=== PATIENT | male | born 1995 | race American Indian/Alaskan Native ===

== ENCOUNTER 2016-12-09 15:56 | Emergency (ER) | payer OTHER, MEDICAID ==
[2016-12-09 16:33] VITALS: BP 131/71
[2016-12-09] MEDS ORDERED: Meclizine 12.5 MG Tab PO ONE (18:22)
[2016-12-09] MEDS ORDERED: Gentamicin 0.3% Ophth Soln 5 ML Bottle EYEBOTH ONE (18:22)
[2016-12-09] MEDS ORDERED: Dexamethasone 4 MG Tab PO ONE (18:23)
--- NOTE | 2016-12-09 19:01 | EDM.PDOC ---
Scribed by Kaye Espino 12/09/16 [id number] for Oren Chavez MD ED HPI GENERAL MEDICAL PROBLEM - General Chief Complaint: ENT Problem Stated Complaint: EYES ARE HURTING, [id number] Time Seen by Provider: 12/09/16 17:46 Source of Information: Reports: Patient, RN, RN Notes Reviewed History Limitations: Reports: No Limitations - History of Present Illness INITIAL COMMENTS - FREE TEXT/NARRATIVE: Complained that woke today with frontal headache, and pressure behind eyes and in bilateral ears. When he first sat up this morning he had sudden onset of "room spin dizziness" with nausea and vomiting that lasted less than 5 minutes. Onset: Today Duration: Improving Location: Reports: Head, Face Quality: Reports: Ache Severity: Moderate Improves with: Reports: None Worsens with: Reports: None Associated Symptoms: Reports: No Other Symptoms - Related Data Allergies Allergy/AdvReac Type Severity Reaction Status Date / Time codeine Allergy Cannot Verified 06/04/16 15:53 Remember Home Meds: Home Meds . [No Known Home Meds] 06/04/16 [History] Past Medical History - Past Health History Medical/Surgical History: Denies Medical/Surgical History - Infectious Disease History Infectious Disease History: Reports: None Social & Family History - Family History Family Medical History: Noncontributory - Tobacco Use Smoking Status *Q: Never Smoker Second Hand Smoke Exposure: No - Caffeine Use Caffeine Use: Reports: Coffee, Soda, Tea - Recreational Drug Use Recreational Drug Use: No ED ROS ENT - Review of Systems Review Of Systems: ROS reveals no pertinent complaints other than HPI. ED EXAM, ENT - Physical Exam Exam: See Below Exam Limited By: No Limitations General Appearance: Alert, WD/WN, No Apparent Distress, Obese Eye Exam: Bilateral Eye: Conjunctival Injection (with green matting at bilateral eyes. ) Ears: Normal External Exam, Normal Canal, Hearing Grossly Normal, Normal TMs Nose: Normal Inspection, Normal Mucousa, No Blood Mouth/Throat: Normal Inspection, Normal Gums, Normal Lips, Normal Oropharynx, Normal Teeth Head: Atraumatic Neck: Normal Inspection, Supple, Non-Tender, Full Range of Motion Respiratory/Chest: No Respiratory Distress, Lungs Clear, Normal Breath Sounds, No Accessory Muscle Use, Chest Non-Tender Cardiovascular: Normal Peripheral Pulses, Regular Rate, Rhythm, No Edema, No Gallop, No JVD, No Murmur, No Rub GI/Abdominal: Normal Bowel Sounds, Soft, Non-Tender, No Organomegaly, No Distention, No Abnormal Bruit, No Mass Back: Normal Inspection, Full Range of Motion Extremities: Normal Inspection, Normal Range of Motion, Non-Tender, No Pedal Edema, Normal Capillary Refill Neurological: Alert, Oriented, CN II-XII Intact, Normal Cognition, Normal Gait, Normal Reflexes, No Motor/Sensory Deficits Psychiatric: Normal Affect, Normal Mood Skin: Warm, Dry, Intact, Normal Color, No Rash Lymphatic: No Adenopathy Course - Vital Signs Last Recorded V/S: Last Vital Signs Temp 36.8 C 12/09/16 16:32 Pulse 80 12/09/16 16:32 Resp 16 12/09/16 16:32 BP 131/71 12/09/16 16:32 Pulse Ox 99 12/09/16 16:32 - Orders/Labs/Meds Meds: Medications Discontinued Medications Generic Name Dose Route Start Last Admin Trade Name Jace PRN Reason Stop Dose Admin Dexamethasone 8 mg 12/09/16 18:23 12/09/16 18:38 Dexamethasone PO 12/09/16 18:24 8 mg ONETIME ONE Administration Gentamicin Sulfate 2 ml 12/09/16 18:22 12/09/16 18:37 Garamycin 0.3% Ophth Soln EYEBOTH 12/09/16 18:23 2 ml ONETIME ONE Administration Meclizine HCl 25 mg 12/09/16 18:22 12/09/16 18:37 Antivert PO 12/09/16 18:23 25 mg ONETIME ONE Administration Departure - Departure Time of Disposition: 18:23 Disposition: Home, Self-Care 01 Condition: Good Clinical Impression: Bacterial conjunctivitis of both eyes, Sinus headache Labyrinthitis Qualifiers: Laterality: bilateral Qualified Code(s): H83.03 - Labyrinthitis, bilateral Allergic rhinosinusitis Qualifiers: Chronicity: acute Allergic rhinitis trigger: unspecified Allergic rhinitis seasonality: seasonal Qualified Code(s): J30.2 - Other seasonal allergic rhinitis - Discharge Information Instructions: Labyrinthitis, [id number], Bacterial Conjunctivitis, Easy-to- Read, Nasal Allergies, [id number], Sinus Headache, [id number] Forms: ED Department Discharge Additional Instructions: RX: Meclizine 25mg. RX: Decadron 4mg. RX: Claritin-D 24 hour. Gentamicin 0.3% soln. Follow up in clinic in 3 days for recheck. I have read and agree with the documentation that has been completed regarding this visit. By signing this record, I attest that the documentation was completed in my physical presence and is an accurate record of the encounter.
== END 2016-12-09 18:40 | disposition home or self-care (01) ==
LOC: DL.ED 15:56
DX: H83.03 Labyrinthitis, bilateral (principal); H10.9 Unspecified conjunctivitis; J30.2 Other seasonal allergic rhinitis; Z88.5 Allergy status to narcotic agent
CPT/HCPCS: 99282; A9270; J8540

== ENCOUNTER 2018-08-21 17:23 | Emergency (ER) | payer MEDICAID, OTHER ==
[2018-08-21] MEDS ORDERED: methylPREDNISolone 4 MG Tab 21 Tab/Dosepak PO ONE (17:24)
[2018-08-21] MEDS ORDERED: Albuterol 6.7 GM Inhaler INH ONE ×2 (17:24→18:14)
[2018-08-21 17:37] VITALS: BP 144/78
[2018-08-21] MEDS ORDERED: Ketorolac 30 MG/ML SDV IM ONE (17:47)
[2018-08-21] MEDS ORDERED: methylPREDNISolone 4 MG Tab 21 Tab/Dosepak ONE (18:14)
--- NOTE | 2018-08-21 20:44 | ER ---
SUBJECTIVE: The patient is a 23-year-old morbidly obese male, who comes in because he has some shortness of breath at times but mostly coughing. He states he gets it spells, if he gets around something that bothers his lungs he coughs. He states yesterday he did not cough all day and was fine today. He feels he must have gotten around something and he coughed again. He states he was coughing hard and he felt a pop of his ribs, he is afraid may be fractured a rib. He does not have any focal or specific tenderness but does have some discomfort of his ribs, mostly on the left and posteriorly. No other trauma. No fevers, no chills. No nausea or vomiting. No bowel or bladder changes. No bleeding. He denies having a diagnosis of asthma. PAST MEDICAL HISTORY: Denied. CURRENT MEDICATIONS: Denied. ALLERGIES: Include codeine but he cannot remember why. SOCIAL HISTORY: He denies tobacco or any other substance abuse. REVIEW OF SYSTEMS: No fevers, no chills. He does have some rib and chest wall discomfort if he coughs too hard. No abdominal pain. No bowel or bladder changes, bleeding, please see HPI. PHYSICAL EXAMINATION: Vital Signs: His weight is 142 kg. He is afebrile. Heart rate is 92, blood pressure is 144/78, respiratory rate 16, oxygen is 98% on room air. General: Pleasant, ambulatory, talkative, appears in no respiratory distress. No coughing. Speaks in full sentences. HEENT: Mucous membranes moist. HEENT exam unremarkable. Conjunctivae are unremarkable. Neck: Unremarkable. Chest: Clear. No rhonchi, wheezing, or rales. Moving air well. Cardiovascular: RRR. Back: Unremarkable. He has some subjective rib and chest discomfort if he coughs, it is not reproducible on exam; however, exam is somewhat difficult in light of the patient's size. A chest x-ray is performed, it is unremarkable. The patient's heart was monitored on tele and his vitals and he remained very stable. EMERGENCY ROOM COURSE: He was given injection of Toradol. ASSESSMENT: 1. Bronchospasm versus reactive airway disease. 2. Chest wall discomfort with heavy coughing spells periodically. PLAN: Prescription for ProAir HFA 2 puffs q.i.d. p.r.n. #1, a prescription of Medrol Dosepak as directed. Recommend follow up with PCP this next week or return for any emergent issues. Recommend stay away from any tobacco use or other exposure that bother his lungs. MODL /[id number]
== END 2018-08-21 18:27 | disposition home or self-care (01) ==
LOC: DL.ED 17:23
DX: R07.89 Other chest pain (principal)
CPT/HCPCS: 71046; 96372; 99284; A9270; J1885

== ENCOUNTER 2018-09-03 17:22 | Emergency (ER) | payer SELFPAY ==
[2018-09-03 17:53] VITALS: BP 146/76
[2018-09-03] MEDS ORDERED: GI Cocktail Oral Solution 30 ML PO ONE (18:11)
[2018-09-03] MEDS ORDERED: Omeprazole 20 MG Cap.CR PO ONE (18:57)
--- NOTE | 2018-09-03 18:58 | EDM.PDOC ---
ED HPI GENERAL MEDICAL PROBLEM - General Chief Complaint: Respiratory Problem Stated Complaint: HAVING A BREATHING PROBLEM Time Seen by Provider: 09/03/18 18:00 Source of Information: Reports: Patient History Limitations: Reports: No Limitations - History of Present Illness INITIAL COMMENTS - FREE TEXT/NARRATIVE: patient comes emergency department today with complaints of cough. He was seen in the emergency department couple weeks ago and diagnosed with bronchitis and had steroids as well as an inhaler. His wheezing and shortness of breath has improved. This morning about 3:00 he woke up with a severe coughing fit. His coughing fit resolved following the use of the inhaler that he had received earlier.Most of his coughing fit and shortness of breath that he has an wheezing develops during the night. He has a burning sensation in the back of his throat as well as a metallic taste. He is unsure if he has any heartburn type symptoms. He has no fever or chills. His cough is dry hacking in nature and nonproductive. He has no pain in his chest. No weakness dizziness lightheadedness. No palpitations. Treatments [employer]: Reports: NSAIDS, Other (see below) Other Treatments [employer]: albuterol inhaler. - Related Data Allergies Allergy/AdvReac Type Severity Reaction Status Date / Time codeine Allergy Cannot Verified 09/03/18 18:03 Remember Home Meds: Home Meds Albuterol [Proventil HFA] 6.7 gm IH Q4H 09/03/18 [History] Past Medical History - Past Health History Medical/Surgical History: Denies Medical/Surgical History - Infectious Disease History Infectious Disease History: Reports: None Social & Family History - Family History Family Medical History: Noncontributory - Tobacco Use Smoking Status *Q: Never Smoker Second Hand Smoke Exposure: No - Caffeine Use Caffeine Use: Reports: Coffee, Soda - Recreational Drug Use Recreational Drug Use: No ED ROS GENERAL - Review of Systems Review Of Systems: ROS reveals no pertinent complaints other than HPI. ED EXAM, GENERAL - Physical Exam Exam: See Below Exam Limited By: No Limitations General Appearance: Alert, WD/WN, No Apparent Distress Nose: Normal Inspection, Normal Mucosa Throat/Mouth: Normal Inspection, Normal Oropharynx Head: Atraumatic, Normocephalic Neck: Normal Inspection, Supple Respiratory/Chest: No Respiratory Distress, Lungs Clear, Normal Breath Sounds, No Accessory Muscle Use, Chest Non-Tender Cardiovascular: Normal Peripheral Pulses, Regular Rate, Rhythm, No JVD, No Murmur, No Rub GI/Abdominal: Normal Bowel Sounds, Soft Extremities: Normal Inspection, Normal Range of Motion, No Pedal Edema, Normal Capillary Refill Neurological: Alert, Oriented, Normal Cognition, No Motor/Sensory Deficits Psychiatric: Normal Affect, Normal Mood Skin Exam: Warm, Dry, Intact, Normal Color, No Rash Course - Vital Signs Last Recorded V/S: Last Vital Signs Temp 36.4 C 09/03/18 17:41 Pulse 97 09/03/18 17:41 Resp 16 09/03/18 17:41 BP 146/76 H 09/03/18 17:41 Pulse Ox 98 09/03/18 17:41 - Orders/Labs/Meds Meds: Medications Discontinued Medications Generic Name Dose Route Start Last Admin Trade Name Jace PRN Reason Stop Dose Admin Al Hydroxide/Mg Hydroxide 30 ml 09/03/18 18:11 09/03/18 18:15 Gi Cocktail PO 09/03/18 18:12 30 ml ONETIME ONE Administration Omeprazole 20 mg 09/03/18 18:57 09/03/18 19:03 Omeprazole PO 09/03/18 18:58 20 mg ONETIME ONE Administration - Re-Assessments/Exams Free Text/Narrative Re-Assessment/Exam: 09/03/18 the patient is clearly in no respiratory distress. He has no wheezing on forced exhalation. I wonder if an aspect of his cough that he only has a night with the burning sensation in his throat as well as a metallic taste was not somewhat related to heartburn or GERD.a GI cocktail was given to the patient and he felt much better and the sensation in his throat and the tickle that he had previously that made him cough is resolved. I will send him home with some omeprazole as well as Maalox Mylanta as needed for acute episodes of heartburn type sensation. He can continue with the albuterol as needed. If he has continued problems consider testing with spirometry for asthma. Patient is comfort with this plan and his questions are answered. Departure - Departure Time of Disposition: 18:55 Disposition: Home, Self-Care 01 Clinical Impression: Cough GERD (gastroesophageal reflux disease) Qualifiers: Esophagitis presence: esophagitis presence not specified Qualified Code(s): K21.9 - Gastro-esophageal reflux disease without esophagitis - Discharge Information Instructions: Cough, Adult, [id number], Gastroesophageal Reflux Disease, Adult Referrals: PCP,None [Primary Care Provider] - Forms: ED Department Discharge Additional Instructions: Continue using the inhaler as needed for the cough. Start Omeprazole 1 tablet daily for the next 28 days. RX given to the patient. For acute episodes of heartburn try Maalox or Mylanta OTC for acute management. If cough continues see PCP for recheck and consider spirometry for diagnosis of asthma. Return to the ED if new or worsening symptoms Follow up with PCP in the next 4-6 days if not improving sooner if worse. - Assessment/Plan Assessment:: Cough, ? if GERD vs asthma most likely GERD. GERD Plan: Continue using the inhaler as needed for the cough. Start Omeprazole 1 tablet daily for the next 28 days. RX given to the patient. For acute episodes of heartburn try Maalox or Mylanta OTC for acute management. If cough continues see PCP for recheck and consider spirometry for diagnosis of asthma. Return to the ED if new or worsening symptoms Follow up with PCP in the next 4-6 days if not improving sooner if worse.
== END 2018-09-03 19:07 | disposition home or self-care (01) ==
LOC: DL.ED 17:22
DX: K21.9 Gastro-esophageal reflux disease without esophagitis (principal); R05 Cough; Z88.5 Allergy status to narcotic agent
CPT/HCPCS: 99282; A9270

== ENCOUNTER 2020-09-05 19:42 | Emergency (ER) | payer OTHER, SELFPAY ==
[2020-09-05 20:07] VITALS: BP 126/77; PULSE 107
[2020-09-05 20:58] LABS: CORONAVIRUS COVID-19 NAA POSITIVE (NEGATIVE)
--- NOTE | 2020-09-05 21:22 | EDM.PDOC ---
ED HPI GENERAL MEDICAL PROBLEM - General Chief Complaint: Fever Stated Complaint: HIGH TEMP, COUGHING,SHALLOW BREATHING Time Seen by Provider: 09/05/20 20:30 Source of Information: Reports: Patient History Limitations: Reports: No Limitations - History of Present Illness INITIAL COMMENTS - FREE TEXT/NARRATIVE: Cough since Thursday, fever some congestion. No nausea or vomiting. no change in taste or smell. No known exposure to COVID. Sternum Pain Score (Numeric/FACES): 8 - Related Data Allergies Allergy/AdvReac Type Severity Reaction Status Date / Time codeine Allergy Cannot Verified 09/05/20 20:02 Remember citric acid Allergy Cannot Uncoded 09/05/20 20:02 Remember Home Meds: Home Meds Albuterol [Proventil HFA] 6.7 gm IH Q4H 09/03/18 [History] Past Medical History - Past Health History Medical/Surgical History: Denies Medical/Surgical History - Infectious Disease History Infectious Disease History: Reports: None Social & Family History - Family History Family Medical History: No Pertinent Family History - Tobacco Use Tobacco Use Status *Q: Never Tobacco User Second Hand Smoke Exposure: No - Caffeine Use Caffeine Use: Reports: Soda - Recreational Drug Use Recreational Drug Use: No ED ROS GENERAL - Review of Systems Review Of Systems: Comprehensive ROS is negative, except as noted in HPI. ED EXAM, GENERAL - Physical Exam Exam: See Below Exam Limited By: No Limitations General Appearance: Alert, No Apparent Distress Eye Exam: Bilateral Eye: EOMI Ears: Normal External Exam, Hearing Grossly Normal Nose: Normal Inspection Throat/Mouth: Normal Inspection Head: Atraumatic, Normocephalic Neck: Normal Inspection Respiratory/Chest: No Respiratory Distress, Lungs Clear, Normal Breath Sounds Cardiovascular: Normal Peripheral Pulses, Regular Rate, Rhythm GI/Abdominal: Normal Bowel Sounds, Soft Extremities: Normal Inspection, Normal Range of Motion Neurological: Alert, Oriented, Normal Cognition Psychiatric: Normal Affect, Normal Mood Skin Exam: Warm, Dry, Intact, Normal Color Course - Vital Signs Last Recorded V/S: Last Vital Signs Temp 100.5 F 09/05/20 19:50 Pulse 107 H 09/05/20 19:50 Resp 18 09/05/20 19:50 BP 126/77 09/05/20 19:50 Pulse Ox 96 09/05/20 19:50 - Orders/Labs/Meds Labs: Laboratory Tests 09/05/20 Range/Units 20:00 Influenza Type A RNA Negative (NEGATIVE) Influenza Type B RNA Negative (NEGATIVE) SARS-CoV-2 RNA (ARA) Positive H (NEGATIVE) Departure - Departure Time of Disposition: 21:20 Disposition: Home, Self-Care 01 Condition: Good Clinical Impression: COVID-19 - Discharge Information *PRESCRIPTION DRUG MONITORING PROGRAM REVIEWED*: No *COPY OF PRESCRIPTION DRUG MONITORING REPORT IN PATIENT LEVI: No Instructions: COVID-19 Frequently Asked Questions, 10 Things You Can Do to Manage Your COVID-19 Symptoms at Home - CDC Forms: ED Department Discharge Additional Instructions: fluids tylenol for fever/discomfort limit exposure to others wear mask good handwashing humidifier Sepsis Event Note (ED) - Evaluation Sepsis Screening Result: No Definite Risk - Focused Exam Vital Signs: Vital Signs Temp Pulse Resp BP Pulse Ox 09/05/20 19:50 100.5 F 107 H 18 126/77 96
== END 2020-09-05 21:31 | disposition home or self-care (01) ==
LOC: DL.ED 19:42
DX: U07.1 COVID-19 (principal); Z88.5 Allergy status to narcotic agent; Z88.8 Allergy status to other drugs, medicaments and biological substances
CPT/HCPCS: 0240U; 99283; 99282

== ENCOUNTER 2020-09-12 08:26 | Inpatient (IN) | payer OTHER ==
--- NOTE | 2020-09-12 08:37 | EDM.PDOC ---
ED HPI GENERAL MEDICAL PROBLEM - General Chief Complaint: Respiratory Problem Stated Complaint: SENT OVER FROM [facility] Time Seen by Provider: 09/12/20 08:36 Source of Information: Reports: Patient, Old Records, RN, RN Notes Reviewed History Limitations: Reports: No Limitations - History of Present Illness INITIAL COMMENTS - FREE TEXT/NARRATIVE: Pt sent from [facility] with c/o dyspnea and found in clinic to be with oxygen saturation of 77% on RA with labored breathing. Patient states he became ill on 09/03/20, came to the ER on 09/05/20 and was COVID positive. He reports gener alized body aches, loss of appetite, nausea, dry cough, and shortness of breath. Denies Hx of DM, asthma, or any other chronic diseases. Onset: Gradual Onset Date: 09/03/20 Duration: Constant, Getting Worse Location: Reports: Chest, Generalized Quality: Reports: Pressure Severity: Severe Improves with: Reports: None Worsens with: Reports: Breathing, Other (Activity/Exertion) Context: Reports: Sick Contact (Spouse with COVID) Associated Symptoms: Reports: No Other Symptoms Treatments [employer]: Reports: Breathing Treatments - Related Data Allergies Allergy/AdvReac Type Severity Reaction Status Date / Time codeine Allergy Cannot Verified 09/05/20 20:02 Remember citric acid Allergy Cannot Uncoded 09/05/20 20:02 Remember Home Meds: Home Meds Albuterol [Proventil HFA] 6.7 gm IH Q4H 09/03/18 [History] Past Medical History Endocrine/Metabolic History: Reports: Obesity/BMI 30+ - Infectious Disease History Infectious Disease History: Reports: Other (See Below) (COVID positive on 09/05/20) Social & Family History - Family History Family Medical History: No Pertinent Family History - Tobacco Use Tobacco Use Status *Q: Never Tobacco User - Caffeine Use Caffeine Use: Reports: Soda - Alcohol Use Alcohol Use History: No - Recreational Drug Use Recreational Drug Use: No - Living Situation & Occupation Living situation: Reports: , with Family Occupation: Employed ED ROS GENERAL - Review of Systems Review Of Systems: Comprehensive ROS is negative, except as noted in HPI. ED EXAM, GENERAL - Physical Exam Exam: See Below Exam Limited By: No Limitations General Appearance: Alert, Anxious, Mild Distress, Obese Eye Exam: Bilateral Eye: Normal Inspection Ears: Normal External Exam, Hearing Grossly Normal Nose: Normal Inspection, Normal Mucosa, No Blood Throat/Mouth: Normal Voice, No Airway Compromise Head: Atraumatic, Normocephalic Neck: Normal Inspection, Full Range of Motion Respiratory/Chest: Chest Non-Tender, Decreased Breath Sounds, Other (Tachypnea, increased work of breathing). No: Crackles, Rales, Rhonchi, Wheezing Cardiovascular: Normal Peripheral Pulses, Regular Rate, Rhythm, No Edema, No Murmur, Tachycardia GI/Abdominal: Normal Bowel Sounds, Soft, Non-Tender, Other (Benign obese abdomen) Back Exam: Normal Inspection Extremities: Normal Inspection, Normal Range of Motion, Non-Tender, Normal Capillary Refill, No Pedal Edema Neurological: Alert, Oriented, CN II-XII Intact, Normal Cognition, No Motor/Sensory Deficits Psychiatric: Anxious Skin Exam: Warm, Dry, Intact, Normal Color, No Rash #1 Interpretation EKG Date: 09/12/20 Time: 08:39 Rhythm: Other (Sinus Tach) Rate (Beats/Min): 108 [place]: RAD-Right [place] Deviation P-Wave: Present QRS: Other (Smal inferior Q waves) ST-T: Normal QT: Normal Comparison: NA - No Prior EKG Course - Vital Signs Last Recorded V/S: Last Vital Signs Temp 98.1 F 09/12/20 09:29 Pulse 100 09/12/20 09:29 Resp 24 H 09/12/20 09:29 BP 119/73 09/12/20 09:29 Pulse Ox 91 L 09/12/20 09:39 - Orders/Labs/Meds Orders: Active Orders 24 hr Category Date Time Status EKG 12 Lead [EKG Documentation Completion] [RC] STAT Care 09/12/20 08:38 Active Peripheral IV Care [RC] . DIRECTED Care 09/12/20 08:39 Active RT Aerosol Therapy [RC] ASDIRECTED Care 09/12/20 08:40 Active Chest wo Cont [CT] Stat Exams 09/12/20 08:50 Taken CULTURE BLOOD [BC] Stat Lab 09/12/20 09:13 Received Sodium Chloride 0.9% [Saline Flush] Med 09/12/20 08:39 Active 10 ml FLUSH ASDIRECTED PRN Peripheral IV Insertion Adult [OM.PC] Stat Oth 09/12/20 08:38 Ordered Medication Orders Sodium Chloride (Sodium Chloride 0.9% 10 Ml Syringe) 10 ml FLUSH ASDIRECTED PRN PRN Reason: Keep Vein Open Last Admin: 09/12/20 08:46 Dose: 10 ml Documented by: CASEY Labs: Laboratory Tests 09/12/20 09/12/20 09/12/20 Range/Units 08:43 08:43 08:43 WBC 6.9 (5.0-10.0) 10^3/uL RBC 5.97 (4.6-6.2) 10^6/uL Hgb 15.8 D (14.0-18.0) g/dL Hct 47.2 (40.0-54.0) % MCV 79.1 L (80-100) fL MCH 26.5 L (27.0-34.0) pg MCHC 33.5 (33.0-35.0) g/dL Plt Count 244 (150-450) 10^3/uL Neut % (Auto) 80.4 H (42.2-75.2) % Lymph % (Auto) 13.5 L (20.5-50.1) % Irion % (Auto) 6.0 (2-8) % Eos % (Auto) 0.1 L (1.0-3.0) % Baso % (Auto) 0.0 (0.0-1.0) % Add Manual Diff Yes Neutrophils % (Manual) 78 H (42-75) % Band Neutrophils % 5 % Lymphocytes % (Manual) 12 L (20-50) % Monocytes % (Manual) 5 (2-8) % PT 10.6 (9.0-12.0) SEC INR 1.1 (0.9-1.2) APTT 29.8 (22.0-34.0) SEC D-Dimer, Quantitative 1170 H (0-400) ng/mL ABG pH (7.35-7.45) ABG pCO2 (35-45) mmHg ABG pO2 (70-100) mmHg ABG HCO3 (22-26) mmol/L ABG O2 Saturation (95-100) % ABG Base Excess ((-2)-(+3)) mmol/L Rodrigo Test O2 Delivery Device Sodium 136 (136-145) mmol/L Potassium 3.3 L (3.5-5.1) mmol/L Chloride 98 (98-107) mmol/L Carbon Dioxide 21 (21-32) mmol/L Anion Gap 20.3 H (7-13) mEq/L BUN 11 (7-18) mg/dL Creatinine 0.77 (0.70-1.30) mg/dL Est Cr Clr Drug Dosing TNP Estimated GFR (MDRD) > 60 BUN/Creatinine Ratio 14.3 (No establ ref range) Glucose 263 H (70-99) mg/dL Lactic Acid (0.4-2.0) mmol/L Calcium 8.7 (8.5-10.1) mg/dL Ferritin (26-388) mg/mL Total Bilirubin 0.5 (0.2-1.0) mg/dL AST 27 (15-37) U/L ALT 48 (16-63) U/L Alkaline Phosphatase 132 H (46-116) U/L Lactate Dehydrogenase 431 H (85-227) U/L Creatine Kinase 38 L (39-308) U/L Troponin I < 0.017 (0.000-0.056) ng/mL C-Reactive Protein 30.4 H (0.0-0.9) mg/dL B-Natriuretic Peptide 10 (0-100) pg/ml Total Protein 8.4 H (6.4-8.2) g/dL Albumin 2.5 L (3.4-5.0) g/dL Globulin 5.9 Albumin/Globulin Ratio 0.42 09/12/20 09/12/20 09/12/20 Range/Units 08:43 08:43 09:06 WBC (5.0-10.0) 10^3/uL RBC (4.6-6.2) 10^6/uL Hgb (14.0-18.0) g/dL Hct (40.0-54.0) % MCV (80-100) fL MCH (27.0-34.0) pg MCHC (33.0-35.0) g/dL Plt Count (150-450) 10^3/uL Neut % (Auto) (42.2-75.2) % Lymph % (Auto) (20.5-50.1) % Irion % (Auto) (2-8) % Eos % (Auto) (1.0-3.0) % Baso % (Auto) (0.0-1.0) % Add Manual Diff Neutrophils % (Manual) (42-75) % Band Neutrophils % % Lymphocytes % (Manual) (20-50) % Monocytes % (Manual) (2-8) % PT (9.0-12.0) SEC INR (0.9-1.2) APTT (22.0-34.0) SEC D-Dimer, Quantitative (0-400) ng/mL ABG pH 7.41 (7.35-7.45) ABG pCO2 31 L (35-45) mmHg ABG pO2 62 L (70-100) mmHg ABG HCO3 18.7 L (22-26) mmol/L ABG O2 Saturation 90 L (95-100) % ABG Base Excess -4 L ((-2)-(+3)) mmol/L Rodrigo Test Performed O2 Delivery Device Hi flow nasal cannu Sodium (136-145) mmol/L Potassium (3.5-5.1) mmol/L Chloride (98-107) mmol/L Carbon Dioxide (21-32) mmol/L Anion Gap (7-13) mEq/L BUN (7-18) mg/dL Creatinine (0.70-1.30) mg/dL Est Cr Clr Drug Dosing Estimated GFR (MDRD) BUN/Creatinine Ratio (No establ ref range) Glucose (70-99) mg/dL Lactic Acid 1.5 (0.4-2.0) mmol/L Calcium (8.5-10.1) mg/dL Ferritin 724 H (26-388) mg/mL Total Bilirubin (0.2-1.0) mg/dL AST (15-37) U/L ALT (16-63) U/L Alkaline Phosphatase (46-116) U/L Lactate Dehydrogenase (85-227) U/L Creatine Kinase (39-308) U/L Troponin I (0.000-0.056) ng/mL C-Reactive Protein (0.0-0.9) mg/dL B-Natriuretic Peptide (0-100) pg/ml Total Protein (6.4-8.2) g/dL Albumin (3.4-5.0) g/dL Globulin Albumin/Globulin Ratio Meds: Medications Generic Name Dose Route Start Last Admin Trade Name Freq PRN Reason Stop Dose Admin Sodium Chloride 10 ml 09/12/20 08:39 09/12/20 08:46 Sodium Chloride 0.9% 10 Ml Syringe FLUSH 10 ml ASDIRECTED PRN Administration Keep Vein Open Discontinued Medications Generic Name Dose Route Start Last Admin Trade Name Freq PRN Reason Stop Dose Admin Albuterol/Ipratropium 3 ml 09/12/20 08:40 09/12/20 09:03 Albuterol/Ipratropium 3.0-0.5 Mg/3 Ml Neb Soln NEB 09/12/20 08:41 3 ml ONETIME ONE Administration Dexamethasone 6 mg 09/12/20 08:40 09/12/20 09:02 Dexamethasone 4 Mg/Ml Sdv IVPUSH 09/12/20 08:41 6 mg ONETIME ONE Administration Azithromycin 500 mg/ Sodium 250 mls @ 250 mls/hr 09/12/20 08:40 09/12/20 09:01 Chloride IV 09/12/20 09:39 250 mls/hr ONETIME ONE Administration Departure - Departure Time of Disposition: 09:53 (admitted to Dr. Holliday) Disposition: Admitted As Inpatient 65 Condition: Fair, Serious Clinical Impression: Pneumonia due to COVID-19 virus, Acute respiratory failure due to COVID-19, Hyperglycemia - Discharge Information *PRESCRIPTION DRUG MONITORING PROGRAM REVIEWED*: Not Applicable *COPY OF PRESCRIPTION DRUG MONITORING REPORT IN PATIENT LEVI: Not Applicable Forms: ED Department Discharge Sepsis Event Note (ED) - Focused Exam Vital Signs: Vital Signs Temp Pulse Resp BP Pulse Ox Pulse Ox 09/12/20 09:39 91 L 09/12/20 09:35 92 L 09/12/20 09:29 98.1 F 100 24 H 119/73 78 L - My Orders Last 24 Hours: My Active Orders 09/12/20 08:38 EKG 12 Lead [EKG Documentation Completion] [RC] STAT Peripheral IV Insertion Adult [OM.PC] Stat 09/12/20 08:39 Peripheral IV Care [RC] . DIRECTED Sodium Chloride 0.9% [Saline Flush] 10 ml FLUSH ASDIRECTED PRN 09/12/20 08:40 RT Aerosol Therapy [RC] ASDIRECTED 09/12/20 08:50 Chest wo Cont [CT] Stat 09/12/20 09:13 CULTURE BLOOD [BC] Stat - Assessment/Plan Last 24 Hours: My Active Orders 09/12/20 08:38 EKG 12 Lead [EKG Documentation Completion] [RC] STAT Peripheral IV Insertion Adult [OM.PC] Stat 09/12/20 08:39 Peripheral IV Care [RC] . DIRECTED Sodium Chloride 0.9% [Saline Flush] 10 ml FLUSH ASDIRECTED PRN 09/12/20 08:40 RT Aerosol Therapy [RC] ASDIRECTED 09/12/20 08:50 Chest wo Cont [CT] Stat 09/12/20 09:13 CULTURE BLOOD [BC] Stat
[2020-09-12] MEDS ORDERED: Dexamethasone 4 MG/ML SDV IVPUSH ONE (08:40)
[2020-09-12] MEDS ORDERED: Albuterol/Ipratropium 3.0-0.5 MG/3 ML Neb Soln NEB ONE (08:40)
[2020-09-12] MEDS ORDERED: Azithromycin 500 MG in Sodium Chloride 0.9% 250 ML IV ONE (08:40)
[2020-09-12] MEDS: Sodium Chloride 0.9% 10 ML Syringe FLUSH PRN (08:46)
[2020-09-12 09:08] LABS: PTT,PARTIAL THROMBOPLSTIN TIME 29.8 SEC (22.0-34.0)
[2020-09-12 09:11] LABS: BASE EXCESS ARTERIAL -4 mmol/L ((-2)-(+3)); BICARBONATE,ARTERIAL 18.7 mmol/L (22-26); O2 DELIVERY DEVICE HI FLOW NASAL CANNU; O2 SATURATION ARTERIAL 90 % (95-100); PCO2 ARTERIAL 31 mmHg (35-45); PO2 ARTERIAL 62 mmHg (70-100)
[2020-09-12 09:12] LABS: ALLEN TEST PERFORMED
[2020-09-12 09:15] LABS: ANION GAP 20.3 mEq/L (7-13); CHLORIDE,CL 98 mmol/L (98-107); SODIUM,NA 136 mmol/L (136-145)
--- NOTE | 2020-09-12 10:02 | CT ---
PROCEDURE INFORMATION: Exam: CT Chest Without Contrast; Diagnostic Exam date and time: 09/12/2020 9:24 AM Age: 25 years old Clinical indication: Other: Resp. Failure; Additional info: Covid positive, resp. Failure TECHNIQUE: Imaging protocol: Diagnostic computed tomography of the chest without contrast. Radiation optimization: All CT scans at this facility use at least one of these dose optimization techniques: automated exposure control; mA and/or kV adjustment per patient size (includes targeted exams where dose is matched to clinical indication); or iterative reconstruction. COMPARISON: CR Chest 2V 08/21/2018 5:55 PM FINDINGS: Lungs: Multifocal consolidations in each lung with greater involvement in lower lobes and peripherally in the mid lungs. Relative sparing of superior lung apices and anterior lung bases. Cannot exclude superimposed nodules in areas of consolidation within the lung. Pleural spaces: No pleural effusion. No pneumothorax. Heart: Normal heart size. No pericardial effusion. Pulmonary arteries: Normally sized pulmonary arteries. Cannot assess for pulmonary emboli without IV contrast. Aorta: Normal aorta. Cannot assess for aortic dissection without IV contrast. Lymph nodes: Mediastinal and hilar lymph nodes. Liver: Diffusely fatty liver. No discrete mass. Bones/joints: Scoliosis. No destructive bony lesion. No spondylolysis. No spondylolisthesis. Soft tissues: Unremarkable. IMPRESSION: 1. Multifocal consolidations-multifocal pneumonia vs pulmonary hemorrhage vs noncardiogenic pulmonary edema vs. ARDS. 2. Mediastinal and hilar adenopathy-infectious/inflammatory vs neoplastic. 3. Normal heart size. Cannot assess for aortic dissection or pulmonary emboli without IV contrast.
[2020-09-12 10:43] LABS: HEMOGLOBIN A1C > 14.0 % (<5.7)
[2020-09-12] MEDS ORDERED: Acetaminophen 325 MG Tab PO PRN (11:03)
[2020-09-12] MEDS ORDERED: 50% Dextrose in Water 50 ML Syringe IV PRN ×2 (11:26→11:28)
[2020-09-12] MEDS ORDERED: Glucagon,Human Recombinant 1 MG Vial IM PRN ×2 (11:26→11:28)
--- NOTE | 2020-09-12 11:53 | PCM.HP ---
H&P History of Present Illness - General Date of Service: 09/12/20 Admit Problem/Dx: Admission Diagnosis/Problem Admission Diagnosis/Problem Respiratory distress Source of Information: Patient, Provider (ER) History Limitations: Reports: No Limitations - History of Present Illness Initial Comments - Free Text/Narative: Pt sent from [facility] with c/o dyspnea and found in clinic to be with oxygen saturation of 77% on RA with labored breathing. Patient states he became ill on 09/03/20, came to the ER on 09/05/20 and was COVID positive. He reports generalized body aches, loss of appetite, nausea, dry cough, and shortness of breath. Denies Hx of DM, asthma, or any other chronic diseases. Pt was admitted for Pneumonia due to COVID-19 virus, Acute respiratory failure due to COVID-19, Hyperglycemia Onset of Symptoms: Reports: Gradual Duration of Symptoms: Reports: Day(s): (7) Severity: Moderate Associated Symptoms: Denies: Confusion - Related Data Allergies/Adverse Reactions: Allergies Allergy/AdvReac Type Severity Reaction Status Date / Time codeine Allergy Cannot Verified 09/05/20 20:02 Remember citric acid Allergy Cannot Uncoded 09/05/20 20:02 Remember Past Medical History - Past Health History Medical/Surgical History: Denies Medical/Surgical History HEENT History: Reports: Other (See Below) Other HEENT History: wears glasses Cardiovascular History: Reports: None Respiratory History: Reports: None Gastrointestinal History: Reports: GERD Genitourinary History: Reports: None Musculoskeletal History: Reports: None Neurological History: Reports: None Psychiatric History: Reports: None Endocrine/Metabolic History: Reports: Obesity/BMI 30+, Other (See Below) Other Endocrine/Metabolic History: Prediabetic Hematologic History: Reports: None Immunologic History: Reports: None Oncologic (Cancer) History: Reports: None Dermatologic History: Reports: Other (See Below) Other Dermatologic History: [address] rash to shins, healed - Infectious Disease History Infectious Disease History: Reports: Novel Coronavirus - Past Surgical History Head Surgeries/Procedures: Reports: None Social & Family History - Family History Family Medical History: No Pertinent Family History - Tobacco Use Tobacco Use Status *Q: Never Tobacco User - Caffeine Use Caffeine Use: Reports: Coffee, Soda - Recreational Drug Use Recreational Drug Use: No - Living Situation & Occupation Living situation: Reports: , with Family Occupation: Employed H&P Review of Systems - Review of Systems: Review Of Systems: See Below General: Reports: Malaise Pulmonary: Reports: Shortness of Breath Cardiovascular: Denies: Chest Pain Gastrointestinal: Reports: Nausea. Denies: Abdominal Pain Musculoskeletal: Reports: Other (diffuse) Skin: Denies: Cyanosis Psychiatric: Denies: Confusion Neurological: Denies: Confusion Hematologic/Lymphatic: Denies: Anemia Immunologic: Denies: Anaphylaxis Exam - Exam Exam: See Below - Vital Signs Vital Signs: Last Vital Signs Temp 97.8 F 09/12/20 10:29 Pulse 97 09/12/20 10:29 Resp 24 H 09/12/20 10:29 BP 130/86 09/12/20 10:29 Pulse Ox 88 L 09/12/20 10:29 Weight: 253 lb 9.6 oz - Exam Quality Assessment: Supplemental Oxygen General: Alert, Oriented HEENT: Conjunctiva Clear, Other (high flow O2) Neck: Supple (Male) Exam: Deferred Rectal (Males) Exam: Deferred Back Exam: Full Range of Motion Extremities: Normal Inspection Skin: Intact Neurological: Normal Speech Neuro Extensive - Mental Status: Alert, Oriented x3 Neuro Extensive - Motor, Sensory, Reflexes: No: Motor/Sensory Deficits Psychiatric: Alert, Normal Affect - Patient Data Lab Results Last 24 hrs: Laboratory Results - last 24 hr 09/12/20 09/12/20 09/12/20 Range/Units 08:43 08:43 08:43 WBC 6.9 (5.0-10.0) 10^3/uL RBC 5.97 (4.6-6.2) 10^6/uL Hgb 15.8 D (14.0-18.0) g/dL Hct 47.2 (40.0-54.0) % MCV 79.1 L (80-100) fL MCH 26.5 L (27.0-34.0) pg MCHC 33.5 (33.0-35.0) g/dL Plt Count 244 (150-450) 10^3/uL Neut % (Auto) 80.4 H (42.2-75.2) % Lymph % (Auto) 13.5 L (20.5-50.1) % [place] % (Auto) 6.0 (2-8) % Eos % (Auto) 0.1 L (1.0-3.0) % Baso % (Auto) 0.0 (0.0-1.0) % Add Manual Diff Yes Neutrophils % (Manual) 78 H (42-75) % Band Neutrophils % 5 % Lymphocytes % (Manual) 12 L (20-50) % Monocytes % (Manual) 5 (2-8) % PT 10.6 (9.0-12.0) SEC INR 1.1 (0.9-1.2) APTT 29.8 (22.0-34.0) SEC D-Dimer, Quantitative 1170 H (0-400) ng/mL ABG pH (7.35-7.45) ABG pCO2 (35-45) mmHg ABG pO2 (70-100) mmHg ABG HCO3 (22-26) mmol/L ABG O2 Saturation (95-100) % ABG Base Excess ((-2)-(+3)) mmol/L Rodrigo Test O2 Delivery Device Sodium 136 (136-145) mmol/L Potassium 3.3 L (3.5-5.1) mmol/L Chloride 98 (98-107) mmol/L Carbon Dioxide 21 (21-32) mmol/L Anion Gap 20.3 H (7-13) mEq/L BUN 11 (7-18) mg/dL Creatinine 0.77 (0.70-1.30) mg/dL Est Cr Clr Drug Dosing TNP Estimated GFR (MDRD) > 60 BUN/Creatinine Ratio 14.3 (No establ ref range) Glucose 263 H (70-99) mg/dL Hemoglobin A1c (<5.7) % Lactic Acid (0.4-2.0) mmol/L Calcium 8.7 (8.5-10.1) mg/dL Ferritin (26-388) mg/mL Total Bilirubin 0.5 (0.2-1.0) mg/dL AST 27 (15-37) U/L ALT 48 (16-63) U/L Alkaline Phosphatase 132 H (46-116) U/L Lactate Dehydrogenase 431 H (85-227) U/L Creatine Kinase 38 L (39-308) U/L Troponin I < 0.017 (0.000-0.056) ng/mL C-Reactive Protein 30.4 H (0.0-0.9) mg/dL B-Natriuretic Peptide 10 (0-100) pg/ml Total Protein 8.4 H (6.4-8.2) g/dL Albumin 2.5 L (3.4-5.0) g/dL Globulin 5.9 Albumin/Globulin Ratio 0.42 09/12/20 09/12/20 09/12/20 Range/Units 08:43 08:43 08:43 WBC (5.0-10.0) 10^3/uL RBC (4.6-6.2) 10^6/uL Hgb (14.0-18.0) g/dL Hct (40.0-54.0) % MCV (80-100) fL MCH (27.0-34.0) pg MCHC (33.0-35.0) g/dL Plt Count (150-450) 10^3/uL Neut % (Auto) (42.2-75.2) % Lymph % (Auto) (20.5-50.1) % [place] % (Auto) (2-8) % Eos % (Auto) (1.0-3.0) % Baso % (Auto) (0.0-1.0) % Add Manual Diff Neutrophils % (Manual) (42-75) % Band Neutrophils % % Lymphocytes % (Manual) (20-50) % Monocytes % (Manual) (2-8) % PT (9.0-12.0) SEC INR (0.9-1.2) APTT (22.0-34.0) SEC D-Dimer, Quantitative (0-400) ng/mL ABG pH (7.35-7.45) ABG pCO2 (35-45) mmHg ABG pO2 (70-100) mmHg ABG HCO3 (22-26) mmol/L ABG O2 Saturation (95-100) % ABG Base Excess ((-2)-(+3)) mmol/L Rodrigo Test O2 Delivery Device Sodium (136-145) mmol/L Potassium (3.5-5.1) mmol/L Chloride (98-107) mmol/L Carbon Dioxide (21-32) mmol/L Anion Gap (7-13) mEq/L BUN (7-18) mg/dL Creatinine (0.70-1.30) mg/dL Est Cr Clr Drug Dosing Estimated GFR (MDRD) BUN/Creatinine Ratio (No establ ref range) Glucose (70-99) mg/dL Hemoglobin A1c > 14.0 H (<5.7) % Lactic Acid 1.5 (0.4-2.0) mmol/L Calcium (8.5-10.1) mg/dL Ferritin 724 H (26-388) mg/mL Total Bilirubin (0.2-1.0) mg/dL AST (15-37) U/L ALT (16-63) U/L Alkaline Phosphatase (46-116) U/L Lactate Dehydrogenase (85-227) U/L Creatine Kinase (39-308) U/L Troponin I (0.000-0.056) ng/mL C-Reactive Protein (0.0-0.9) mg/dL B-Natriuretic Peptide (0-100) pg/ml Total Protein (6.4-8.2) g/dL Albumin (3.4-5.0) g/dL Globulin Albumin/Globulin Ratio // Range/Units 09:06 WBC (5.0-10.0) 10^3/uL RBC (4.6-6.2) 10^6/uL Hgb (14.0-18.0) g/dL Hct (40.0-54.0) % MCV (80-100) fL MCH (27.0-34.0) pg MCHC (33.0-35.0) g/dL Plt Count (150-450) 10^3/uL Neut % (Auto) (42.2-75.2) % Lymph % (Auto) (20.5-50.1) % [place] % (Auto) (2-8) % Eos % (Auto) (1.0-3.0) % Baso % (Auto) (0.0-1.0) % Add Manual Diff Neutrophils % (Manual) (42-75) % Band Neutrophils % % Lymphocytes % (Manual) (20-50) % Monocytes % (Manual) (2-8) % PT (9.0-12.0) SEC INR (0.9-1.2) APTT (22.0-34.0) SEC D-Dimer, Quantitative (0-400) ng/mL ABG pH 7.41 (7.35-7.45) ABG pCO2 31 L (35-45) mmHg ABG pO2 62 L (70-100) mmHg ABG HCO3 18.7 L (22-26) mmol/L ABG O2 Saturation 90 L (95-100) % ABG Base Excess -4 L ((-2)-(+3)) mmol/L Rodrigo Test Performed O2 Delivery Device Hi flow nasal cannu Sodium (136-145) mmol/L Potassium (3.5-5.1) mmol/L Chloride (98-107) mmol/L Carbon Dioxide (21-32) mmol/L Anion Gap (7-13) mEq/L BUN (7-18) mg/dL Creatinine (0.70-1.30) mg/dL Est Cr Clr Drug Dosing Estimated GFR (MDRD) BUN/Creatinine Ratio (No establ ref range) Glucose (70-99) mg/dL Hemoglobin A1c (<5.7) % Lactic Acid (0.4-2.0) mmol/L Calcium (8.5-10.1) mg/dL Ferritin (26-388) mg/mL Total Bilirubin (0.2-1.0) mg/dL AST (15-37) U/L ALT (16-63) U/L Alkaline Phosphatase (46-116) U/L Lactate Dehydrogenase (85-227) U/L Creatine Kinase (39-308) U/L Troponin I (0.000-0.056) ng/mL C-Reactive Protein (0.0-0.9) mg/dL B-Natriuretic Peptide (0-100) pg/ml Total Protein (6.4-8.2) g/dL Albumin (3.4-5.0) g/dL Globulin Albumin/Globulin Ratio Result Diagrams: 09/12/20 08:43 09/12/20 08:43 Problem List Initiated/Reviewed/Updated: Yes Orders Last 24hrs: Active Orders 24 hr Category Date Time Status Admission Diagnosis [ADT] Urgent ADT 09/12/20 09:57 Ordered Admission Status [Patient Status] [ADT] Routine ADT 09/12/20 09:57 Active Blood Glucose Check, Bedside [RC] WITHMEALSANDBED Care 09/12/20 11:26 Active Influenza Vaccine Charge [RC] .DISCHARGE Care 09/12/20 10:35 Active Peripheral IV Care [RC] 08,20 Care 09/12/20 08:39 Active Positioning, Patient [RC] ASDIRECTED Care 09/12/20 11:05 Active RT Aerosol Therapy [RC] ASDIRECTED Care 09/12/20 08:40 Active Verify Patient Consent Obtain [RC] ASDIRECTED Care 09/12/20 11:03 Active Chest 1V Frontal [CR] Routine Exams 09/14/20 07:00 Ordered ABO/RH TYPE [BBK] Routine Lab 09/12/20 08:43 Received BILIRUBIN DIRECT [CHEM] DAILY Lab 09/12/20 08:43 Received BILIRUBIN DIRECT [CHEM] DAILY Lab 09/13/20 11:15 Ordered BILIRUBIN DIRECT [CHEM] DAILY Lab 09/14/20 11:15 Ordered BILIRUBIN DIRECT [CHEM] DAILY Lab 09/15/20 11:15 Ordered BILIRUBIN DIRECT [CHEM] DAILY Lab 09/16/20 11:15 Ordered BLOOD GAS ARTERIAL [BG] DAILY Lab 09/13/20 07:00 Ordered BLOOD GAS ARTERIAL [BG] DAILY Lab 09/14/20 07:00 Ordered CBC WITH AUTO DIFF [HEME] DAILY Lab 09/13/20 05:00 Ordered CBC WITH AUTO DIFF [HEME] DAILY Lab 09/14/20 05:00 Ordered CBC WITH AUTO DIFF [HEME] DAILY Lab 09/15/20 05:00 Ordered CBC WITH AUTO DIFF [HEME] DAILY Lab 09/16/20 05:00 Ordered CBC WITH AUTO DIFF [HEME] DAILY Lab 09/17/20 05:00 Ordered CBC WITH AUTO DIFF [HEME] DAILY Lab 09/18/20 05:00 Ordered CBC WITH AUTO DIFF [HEME] DAILY Lab 09/19/20 05:00 Ordered CBC WITH AUTO DIFF [HEME] DAILY Lab 09/20/20 05:00 Ordered CBC WITH AUTO DIFF [HEME] DAILY Lab 09/21/20 05:00 Ordered CBC WITH AUTO DIFF [HEME] DAILY Lab 09/22/20 05:00 Ordered CREATINE KINASE,CK [CHEM] Routine Lab 09/13/20 05:00 Ordered CULTURE BLOOD [BC] Stat Lab 09/12/20 09:13 Received D-DIMER QUANTITATIVE [COAG] DAILY Lab 09/13/20 05:00 Ordered D-DIMER QUANTITATIVE [COAG] DAILY Lab 09/14/20 05:00 Ordered D-DIMER QUANTITATIVE [COAG] DAILY Lab 09/15/20 05:00 Ordered D-DIMER QUANTITATIVE [COAG] DAILY Lab 09/16/20 05:00 Ordered D-DIMER QUANTITATIVE [COAG] DAILY Lab 09/17/20 05:00 Ordered D-DIMER QUANTITATIVE [COAG] DAILY Lab 09/18/20 05:00 Ordered D-DIMER QUANTITATIVE [COAG] DAILY Lab 09/19/20 05:00 Ordered D-DIMER QUANTITATIVE [COAG] DAILY Lab 09/20/20 05:00 Ordered D-DIMER QUANTITATIVE [COAG] DAILY Lab 09/21/20 05:00 Ordered D-DIMER QUANTITATIVE [COAG] DAILY Lab 09/22/20 05:00 Ordered FERRITIN [CHEM] Routine Lab 09/14/20 05:00 Ordered FRESH FROZEN PLASMA [BBK] Routine Lab 09/12/20 08:43 Received INR,PT,PROTHROMBIN TIME [COAG] Routine Lab 09/13/20 11:07 Ordered PROCALCITONIN [REF] DAILY Lab 09/13/20 05:00 Ordered PROCALCITONIN [REF] DAILY Lab 09/14/20 05:00 Ordered PROCALCITONIN [REF] DAILY Lab 09/15/20 05:00 Ordered PROCALCITONIN [REF] DAILY Lab 09/16/20 05:00 Ordered PROCALCITONIN [REF] DAILY Lab 09/17/20 05:00 Ordered PROCALCITONIN [REF] DAILY Lab 09/18/20 05:00 Ordered PROCALCITONIN [REF] DAILY Lab 09/19/20 05:00 Ordered PROCALCITONIN [REF] DAILY Lab 09/20/20 05:00 Ordered PROCALCITONIN [REF] DAILY Lab 09/21/20 05:00 Ordered PROCALCITONIN [REF] DAILY Lab 09/22/20 05:00 Ordered Acetaminophen [TylenoL] Med 09/12/20 11:03 Ordered 650 mg PO Q4H PRN Ascorbic Acid [Vitamin C] Med 09/12/20 11:45 Ordered 500 mg PO DAILY Cholecalciferol (Vitamin D3) [Vitamin D3] Med 09/12/20 11:45 Ordered 25 mcg PO DAILY Dextrose 50% in Water Med 09/12/20 11:26 Ordered 50 ml IV Q15M PRN Dextrose 50% in Water Med 09/12/20 11:28 Ordered 50 ml IV Q15M PRN Enoxaparin [Lovenox] Med 09/12/20 21:00 Ordered 100 mg SUBCUT Q12HR Glucagon,Human Recombinant [GlucaGen] Med 09/12/20 11:26 Ordered 1 mg IM Q15M PRN Glucagon,Human Recombinant [GlucaGen] Med 09/12/20 11:28 Ordered 1 mg IM Q15M PRN Insulin Glarg,Human.Rec.Analog [LantUS] Med 09/12/20 11:30 Ordered 15 unit SUBCUT DAILY Insulin Lispro [HumaLOG] Med 09/12/20 12:00 Ordered See Dose Instructions SUBCUT WITHMEALSANDBED Pharmacy to Dose - InFluenza V [Pharmacy to Dose - Med 09/13/20 09:00 Active InFluenza Vaccine] 1 each IM DAILY Remdesivir 100 mg Med 09/13/20 09:00 Ordered Sodium Chloride 0.9% [Normal Saline] 100 ml IV Q24H Remdesivir 200 mg Med 09/12/20 11:03 Ordered Sodium Chloride 0.9% [Normal Saline] 250 ml IV ONETIME Sodium Chloride 0.9% [Saline Flush] Med 09/12/20 08:39 Active 10 ml FLUSH ASDIRECTED PRN dexAMETHasone [Decadron] Med 09/13/20 09:00 Ordered 6 mg IVPUSH DAILY Isolation [COMM] Stat Ot 09/12/20 11:03 Active Peripheral IV Insertion Adult [OM.PC] Stat Ot 09/12/20 08:38 Ordered Transfuse Fresh Frozen Plasma [COMM] Routine Ot 09/12/20 11:03 Ordered Medication Orders Acetaminophen (Acetaminophen 325 Mg Tab) 650 mg PO Q4H PRN PRN Reason: Fever Greater Than 101 Ascorbic Acid (Ascorbic Acid 500 Mg Tab) 500 mg PO DAILY [facility] Cholecalciferol (Cholecalciferol (Vitamin D3) 25 Mcg Tab) 25 mcg PO DAILY [facility] [place] Dexamethasone (Dexamethasone 4 Mg/Ml Sdv) 6 mg IVPUSH DAILY [facility] Stop: 09/22/20 09:01 Dextrose/Water (50% Dextrose In Water 50 Ml Syringe) 50 ml IV Q15M PRN PRN Reason: Hypoglycemia Dextrose/Water (50% Dextrose In Water 50 Ml Syringe) 50 ml IV Q15M PRN PRN Reason: Hypoglycemia Enoxaparin Sodium (Enoxaparin 100 Mg/1 Ml Syringe) 100 mg SUBCUT Q12HR [facility] [place] Glucagon (Glucagon,Human Recombinant 1 Mg Vial) 1 mg IM Q15M PRN PRN Reason: Hypoglycemia Glucagon (Glucagon,Human Recombinant 1 Mg Vial) 1 mg IM Q15M PRN PRN Reason: Hypoglycemia Remdesivir 200 mg/ Sodium (Chloride) 250 mls @ 250 mls/hr IV ONETIME ONE Stop: 09/12/20 12:02 Remdesivir 100 mg/ Sodium (Chloride) 100 mls @ 100 mls/hr IV Q24H JOSE DANIEL Stop: 09/16/20 09:59 Influenza Virus Vaccine (Pharmacy To Dose - Influenza Vaccine) 1 each IM DAILY [facility] Insulin Glargine (Insulin Glarg,Human.Rec.Analog 100 Unit/Ml) 15 unit SUBCUT DAILY JOSE DANIEL Insulin Human Lispro (Insulin Lispro 100 Units/Ml 3 Ml Vial) 0 unit SUBCUT WITHMEALSANDBED JOSE DANIEL; Protocol Sodium Chloride (Sodium Chloride 0.9% 10 Ml Syringe) 10 ml FLUSH ASDIRECTED PRN PRN Reason: Keep Vein Open Last Admin: 09/12/20 08:46 Dose: 10 ml Documented by: CASEY Assessment/Plan Comment:: Pt sent from [facility] with c/o dyspnea and found in clinic to be with oxygen saturation of 77% on RA with labored breathing. Patient states he became ill on 09/03/20, came to the ER on 09/05/20 and was COVID positive. He reports generalized body aches, loss of appetite, nausea, dry cough, and shortness of breath. Denies Hx of DM, asthma, or any other chronic diseases. Pt was admitted for Pneumonia due to COVID-19 virus, Acute respiratory failure due to COVID-19, Hyperglycemia High flow O2. Convalescent COVID-19 [place]: Risks and benefits discussed. Pt would like to proceed. Remdesivir: Risks and benefits discussed. Pt would like to proceed. Methylpred Vit D and VIt C Enoxaparin instruction for proning portioning\ inflammatory markers Pt was informed about the unlikely possibility for requiring intubation: and he agrees if needed. DM Lantus Insulin sliding scale Dietitian
[2020-09-12] MEDS ORDERED: REMDESIVIR 200 MG in Sodium Chloride 0.9% 250 ML IV ONE (12:00)
[2020-09-12] MEDS: Ascorbic Acid 500 MG Tab PO SCH (12:10)
[2020-09-12] MEDS: Cholecalciferol (Vitamin D3) 25 MCG Tab PO SCH (12:10)
[2020-09-12] MEDS: Enoxaparin 100 MG/1 ML Syringe SUBCUT SCH ×2 (12:16→21:40)
[2020-09-12] MEDS: Insulin Glarg,Human.Rec.Analog 100 Unit/ML SUBCUT SCH (12:23)
[2020-09-12] MEDS: Insulin Lispro 100 Units/ML 3 ML Vial SUBCUT SCH ×3 (12:24→21:50)
--- NOTE | 2020-09-12 14:58 | PCM.HP ---
<Physician - DLN,Template - Last Filed: 09/12/20 14:58> H&P History of Present Illness - General Admit Problem/Dx: Admission Diagnosis/Problem Admission Diagnosis/Problem Respiratory distress - Related Data Allergies/Adverse Reactions: Allergies Allergy/AdvReac Type Severity Reaction Status Date / Time codeine Allergy Cannot Verified 09/05/20 20:02 Remember citric acid Allergy Cannot Uncoded 09/05/20 20:02 Remember Past Medical History - Past Health History Medical/Surgical History: Denies Medical/Surgical History HEENT History: Reports: Other (See Below) Other HEENT History: wears glasses Cardiovascular History: Reports: None Respiratory History: Reports: None Gastrointestinal History: Reports: GERD Genitourinary History: Reports: None Musculoskeletal History: Reports: None Neurological History: Reports: None Psychiatric History: Reports: None Endocrine/Metabolic History: Reports: Obesity/BMI 30+, Other (See Below) Other Endocrine/Metabolic History: Prediabetic Hematologic History: Reports: None Immunologic History: Reports: None Oncologic (Cancer) History: Reports: None Dermatologic History: Reports: Other (See Below) Other Dermatologic History: [address] rash to shins, healed - Infectious Disease History Infectious Disease History: Reports: Novel Coronavirus - Past Surgical History Head Surgeries/Procedures: Reports: None Social & Family History - Family History Family Medical History: No Pertinent Family History - Tobacco Use Tobacco Use Status *Q: Never Tobacco User - Caffeine Use Caffeine Use: Reports: Coffee, Soda - Recreational Drug Use Recreational Drug Use: No - Living Situation & Occupation Living situation: Reports: , with Family Occupation: Employed Exam - Vital Signs Vital Signs: Last Vital Signs Temp 97.8 F 09/12/20 10:29 Pulse 97 09/12/20 10:29 Resp 24 H 09/12/20 10:29 BP 130/86 09/12/20 10:29 Pulse Ox 92 L 09/12/20 12:40 Weight: 253 lb 9.6 oz - Patient Data Lab Results Last 24 hrs: Laboratory Results - last 24 hr 09/12/20 09/12/20 09/12/20 Range/Units 08:43 08:43 08:43 WBC 6.9 (5.0-10.0) 10^3/uL RBC 5.97 (4.6-6.2) 10^6/uL Hgb 15.8 D (14.0-18.0) g/dL Hct 47.2 (40.0-54.0) % MCV 79.1 L (80-100) fL MCH 26.5 L (27.0-34.0) pg MCHC 33.5 (33.0-35.0) g/dL Plt Count 244 (150-450) 10^3/uL Neut % (Auto) 80.4 H (42.2-75.2) % Lymph % (Auto) 13.5 L (20.5-50.1) % [place] % (Auto) 6.0 (2-8) % Eos % (Auto) 0.1 L (1.0-3.0) % Baso % (Auto) 0.0 (0.0-1.0) % Add Manual Diff Yes Neutrophils % (Manual) 78 H (42-75) % Band Neutrophils % 5 % Lymphocytes % (Manual) 12 L (20-50) % Monocytes % (Manual) 5 (2-8) % PT 10.6 (9.0-12.0) SEC INR 1.1 (0.9-1.2) APTT 29.8 (22.0-34.0) SEC D-Dimer, Quantitative 1170 H (0-400) ng/mL ABG pH (7.35-7.45) ABG pCO2 (35-45) mmHg ABG pO2 (70-100) mmHg ABG HCO3 (22-26) mmol/L ABG O2 Saturation (95-100) % ABG Base Excess ((-2)-(+3)) mmol/L Rodrigo Test O2 Delivery Device Sodium 136 (136-145) mmol/L Potassium 3.3 L (3.5-5.1) mmol/L Chloride 98 (98-107) mmol/L Carbon Dioxide 21 (21-32) mmol/L Anion Gap 20.3 H (7-13) mEq/L BUN 11 (7-18) mg/dL Creatinine 0.77 (0.70-1.30) mg/dL Est Cr Clr Drug Dosing TNP Estimated GFR (MDRD) > 60 BUN/Creatinine Ratio 14.3 (No establ ref range) Glucose 263 H (70-99) mg/dL Hemoglobin A1c (<5.7) % Lactic Acid (0.4-2.0) mmol/L Calcium 8.7 (8.5-10.1) mg/dL Ferritin (26-388) mg/mL Total Bilirubin 0.5 (0.2-1.0) mg/dL Direct Bilirubin (0.0-0.2) mg/dL AST 27 (15-37) U/L ALT 48 (16-63) U/L Alkaline Phosphatase 132 H (46-116) U/L Lactate Dehydrogenase 431 H (85-227) U/L Creatine Kinase 38 L (39-308) U/L Troponin I < 0.017 (0.000-0.056) ng/mL C-Reactive Protein 30.4 H (0.0-0.9) mg/dL B-Natriuretic Peptide 10 (0-100) pg/ml Total Protein 8.4 H (6.4-8.2) g/dL Albumin 2.5 L (3.4-5.0) g/dL Globulin 5.9 Albumin/Globulin Ratio 0.42 Blood Type 09/12/20 09/12/20 09/12/20 Range/Units 08:43 08:43 08:43 WBC (5.0-10.0) 10^3/uL RBC (4.6-6.2) 10^6/uL Hgb (14.0-18.0) g/dL Hct (40.0-54.0) % MCV (80-100) fL MCH (27.0-34.0) pg MCHC (33.0-35.0) g/dL Plt Count (150-450) 10^3/uL Neut % (Auto) (42.2-75.2) % Lymph % (Auto) (20.5-50.1) % [place] % (Auto) (2-8) % Eos % (Auto) (1.0-3.0) % Baso % (Auto) (0.0-1.0) % Add Manual Diff Neutrophils % (Manual) (42-75) % Band Neutrophils % % Lymphocytes % (Manual) (20-50) % Monocytes % (Manual) (2-8) % PT (9.0-12.0) SEC INR (0.9-1.2) APTT (22.0-34.0) SEC D-Dimer, Quantitative (0-400) ng/mL ABG pH (7.35-7.45) ABG pCO2 (35-45) mmHg ABG pO2 (70-100) mmHg ABG HCO3 (22-26) mmol/L ABG O2 Saturation (95-100) % ABG Base Excess ((-2)-(+3)) mmol/L Rodrigo Test O2 Delivery Device Sodium (136-145) mmol/L Potassium (3.5-5.1) mmol/L Chloride (98-107) mmol/L Carbon Dioxide (21-32) mmol/L Anion Gap (7-13) mEq/L BUN (7-18) mg/dL Creatinine (0.70-1.30) mg/dL Est Cr Clr Drug Dosing Estimated GFR (MDRD) BUN/Creatinine Ratio (No establ ref range) Glucose (70-99) mg/dL Hemoglobin A1c > 14.0 H (<5.7) % Lactic Acid 1.5 (0.4-2.0) mmol/L Calcium (8.5-10.1) mg/dL Ferritin 724 H (26-388) mg/mL Total Bilirubin (0.2-1.0) mg/dL Direct Bilirubin (0.0-0.2) mg/dL AST (15-37) U/L ALT (16-63) U/L Alkaline Phosphatase (46-116) U/L Lactate Dehydrogenase (85-227) U/L Creatine Kinase (39-308) U/L Troponin I (0.000-0.056) ng/mL C-Reactive Protein (0.0-0.9) mg/dL B-Natriuretic Peptide (0-100) pg/ml Total Protein (6.4-8.2) g/dL Albumin (3.4-5.0) g/dL Globulin Albumin/Globulin Ratio Blood Type 09/12/20 09/12/20 09/12/20 Range/Units 08:43 08:43 09:06 WBC (5.0-10.0) 10^3/uL RBC (4.6-6.2) 10^6/uL Hgb (14.0-18.0) g/dL Hct (40.0-54.0) % MCV (80-100) fL MCH (27.0-34.0) pg MCHC (33.0-35.0) g/dL Plt Count (150-450) 10^3/uL Neut % (Auto) (42.2-75.2) % Lymph % (Auto) (20.5-50.1) % [place] % (Auto) (2-8) % Eos % (Auto) (1.0-3.0) % Baso % (Auto) (0.0-1.0) % Add Manual Diff Neutrophils % (Manual) (42-75) % Band Neutrophils % % Lymphocytes % (Manual) (20-50) % Monocytes % (Manual) (2-8) % PT (9.0-12.0) SEC INR (0.9-1.2) APTT (22.0-34.0) SEC D-Dimer, Quantitative (0-400) ng/mL ABG pH 7.41 (7.35-7.45) ABG pCO2 31 L (35-45) mmHg ABG pO2 62 L (70-100) mmHg ABG HCO3 18.7 L (22-26) mmol/L ABG O2 Saturation 90 L (95-100) % ABG Base Excess -4 L ((-2)-(+3)) mmol/L Rodrigo Test Performed O2 Delivery Device Hi flow nasal cannu Sodium (136-145) mmol/L Potassium (3.5-5.1) mmol/L Chloride (98-107) mmol/L Carbon Dioxide (21-32) mmol/L Anion Gap (7-13) mEq/L BUN (7-18) mg/dL Creatinine (0.70-1.30) mg/dL Est Cr Clr Drug Dosing Estimated GFR (MDRD) BUN/Creatinine Ratio (No establ ref range) Glucose (70-99) mg/dL Hemoglobin A1c (<5.7) % Lactic Acid (0.4-2.0) mmol/L Calcium (8.5-10.1) mg/dL Ferritin (26-388) mg/mL Total Bilirubin (0.2-1.0) mg/dL Direct Bilirubin 0.2 (0.0-0.2) mg/dL AST (15-37) U/L ALT (16-63) U/L Alkaline Phosphatase (46-116) U/L Lactate Dehydrogenase (85-227) U/L Creatine Kinase (39-308) U/L Troponin I (0.000-0.056) ng/mL C-Reactive Protein (0.0-0.9) mg/dL B-Natriuretic Peptide (0-100) pg/ml Total Protein (6.4-8.2) g/dL Albumin (3.4-5.0) g/dL Globulin Albumin/Globulin Ratio Blood Type O POSITIVE Result Diagrams: 09/12/20 08:43 09/12/20 08:43 Orders Last 24hrs: Active Orders 24 hr Category Date Time Status Admission Diagnosis [ADT] Urgent ADT 09/12/20 09:57 Ordered Admission Status [Patient Status] [ADT] Routine ADT 09/12/20 09:57 Active Blood Glucose Check, Bedside [RC] WITHMEALSANDBED Care 09/12/20 11:26 Active Influenza Vaccine Charge [RC] .DISCHARGE Care 09/12/20 10:35 Active Peripheral IV Care [RC] 08,20 Care 09/12/20 08:39 Active Positioning, Patient [RC] ASDIRECTED Care 09/12/20 11:05 Active RT Aerosol Therapy [RC] ASDIRECTED Care 09/12/20 08:40 Active Verify Patient Consent Obtain [RC] ASDIRECTED Care 09/12/20 11:03 Active Consult to Vision Teacher [CONS] Routine Cons 09/12/20 12:58 Active Chest 1V Frontal [CR] Routine Exams 09/14/20 07:00 Ordered ABO/RH TYPE [BBK] Routine Lab 09/12/20 08:43 Results BILIRUBIN DIRECT [CHEM] DAILY Lab 09/13/20 11:15 Ordered BILIRUBIN DIRECT [CHEM] DAILY Lab 09/14/20 11:15 Ordered BILIRUBIN DIRECT [CHEM] DAILY Lab 09/15/20 11:15 Ordered BILIRUBIN DIRECT [CHEM] DAILY Lab 09/16/20 11:15 Ordered BLOOD GAS ARTERIAL [BG] DAILY Lab 09/13/20 07:00 Ordered BLOOD GAS ARTERIAL [BG] DAILY Lab 09/14/20 07:00 Ordered CBC WITH AUTO DIFF [HEME] DAILY Lab 09/13/20 05:00 Ordered CBC WITH AUTO DIFF [HEME] DAILY Lab 09/14/20 05:00 Ordered CBC WITH AUTO DIFF [HEME] DAILY Lab 09/15/20 05:00 Ordered CBC WITH AUTO DIFF [HEME] DAILY Lab 09/16/20 05:00 Ordered CBC WITH AUTO DIFF [HEME] DAILY Lab 09/17/20 05:00 Ordered CBC WITH AUTO DIFF [HEME] DAILY Lab 09/18/20 05:00 Ordered CBC WITH AUTO DIFF [HEME] DAILY Lab 09/19/20 05:00 Ordered CBC WITH AUTO DIFF [HEME] DAILY Lab 09/20/20 05:00 Ordered CBC WITH AUTO DIFF [HEME] DAILY Lab 09/21/20 05:00 Ordered CBC WITH AUTO DIFF [HEME] DAILY Lab 09/22/20 05:00 Ordered CREATINE KINASE,CK [CHEM] Routine Lab 09/13/20 05:00 Ordered CULTURE BLOOD [BC] Stat Lab 09/12/20 09:13 Received D-DIMER QUANTITATIVE [COAG] DAILY Lab 09/13/20 05:00 Ordered D-DIMER QUANTITATIVE [COAG] DAILY Lab 09/14/20 05:00 Ordered D-DIMER QUANTITATIVE [COAG] DAILY Lab 09/15/20 05:00 Ordered D-DIMER QUANTITATIVE [COAG] DAILY Lab 09/16/20 05:00 Ordered D-DIMER QUANTITATIVE [COAG] DAILY Lab 09/17/20 05:00 Ordered D-DIMER QUANTITATIVE [COAG] DAILY Lab 09/18/20 05:00 Ordered D-DIMER QUANTITATIVE [COAG] DAILY Lab 09/19/20 05:00 Ordered D-DIMER QUANTITATIVE [COAG] DAILY Lab 09/20/20 05:00 Ordered D-DIMER QUANTITATIVE [COAG] DAILY Lab 09/21/20 05:00 Ordered D-DIMER QUANTITATIVE [COAG] DAILY Lab 09/22/20 05:00 Ordered FERRITIN [CHEM] Routine Lab 09/14/20 05:00 Ordered FRESH FROZEN PLASMA [BBK] Routine Lab 09/12/20 08:43 Results INR,PT,PROTHROMBIN TIME [COAG] Routine Lab 09/13/20 11:07 Ordered PROCALCITONIN [REF] DAILY Lab 09/13/20 05:00 Ordered PROCALCITONIN [REF] DAILY Lab 09/14/20 05:00 Ordered PROCALCITONIN [REF] DAILY Lab 09/15/20 05:00 Ordered PROCALCITONIN [REF] DAILY Lab 09/16/20 05:00 Ordered PROCALCITONIN [REF] DAILY Lab 09/17/20 05:00 Ordered PROCALCITONIN [REF] DAILY Lab 09/18/20 05:00 Ordered PROCALCITONIN [REF] DAILY Lab 09/19/20 05:00 Ordered PROCALCITONIN [REF] DAILY Lab 09/20/20 05:00 Ordered PROCALCITONIN [REF] DAILY Lab 09/21/20 05:00 Ordered PROCALCITONIN [REF] DAILY Lab 09/22/20 05:00 Ordered Acetaminophen [TylenoL] Med 09/12/20 11:03 Active 650 mg PO Q4H PRN Ascorbic Acid [Vitamin C] Med 09/12/20 11:45 Active 500 mg PO DAILY Cholecalciferol (Vitamin D3) [Vitamin D3] Med 09/12/20 11:45 Active 25 mcg PO DAILY Dextrose 50% in Water Med 09/12/20 11:26 Active 50 ml IV Q15M PRN Enoxaparin [Lovenox] Med 09/12/20 11:45 Active 100 mg SUBCUT Q12HR Glucagon,Human Recombinant [GlucaGen] Med 09/12/20 11:26 Active 1 mg IM Q15M PRN Insulin Glarg,Human.Rec.Analog [LantUS] Med 09/12/20 11:30 Active 15 unit SUBCUT DAILY Insulin Lispro [HumaLOG] Med 09/12/20 12:00 Active See Dose Instructions SUBCUT WITHMEALSANDBED Pharmacy to Dose - InFluenza V [Pharmacy to Dose - Med 09/13/20 09:00 Active InFluenza Vaccine] 1 each IM DAILY Remdesivir 100 mg Med 09/13/20 09:00 Active Sodium Chloride 0.9% [Normal Saline] 100 ml IV Q24H Sodium Chloride 0.9% [Saline Flush] Med 09/12/20 08:39 Active 10 ml FLUSH ASDIRECTED PRN dexAMETHasone [Decadron] Med 09/13/20 09:00 Active 6 mg IVPUSH DAILY Isolation [COMM] Stat Oth 09/12/20 11:03 Active Peripheral IV Insertion Adult [OM.PC] Stat Ot 09/12/20 08:38 Ordered Transfuse Fresh Frozen Plasma [COMM] Routine Oth 09/12/20 11:03 Ordered Medication Orders Acetaminophen (Acetaminophen 325 Mg Tab) 650 mg PO Q4H PRN PRN Reason: Fever Greater Than 101 Ascorbic Acid (Ascorbic Acid 500 Mg Tab) 500 mg PO DAILY [facility] Last Admin: 09/12/20 12:10 Dose: 500 mg Documented by: VERENICE Cholecalciferol (Cholecalciferol (Vitamin D3) 25 Mcg Tab) 25 mcg PO DAILY [facility] Last Admin: 09/12/20 12:10 Dose: 25 mcg Documented by: VERENICE Dexamethasone (Dexamethasone 4 Mg/Ml Sdv) 6 mg IVPUSH DAILY [facility] Stop: 09/22/20 09:01 Dextrose/Water (50% Dextrose In Water 50 Ml Syringe) 50 ml IV Q15M PRN PRN Reason: Hypoglycemia Enoxaparin Sodium (Enoxaparin 100 Mg/1 Ml Syringe) 100 mg SUBCUT Q12HR [facility] Last Admin: 09/12/20 12:16 Dose: 100 mg Documented by: VERENICE Glucagon (Glucagon,Human Recombinant 1 Mg Vial) 1 mg IM Q15M PRN PRN Reason: Hypoglycemia Remdesivir 100 mg/ Sodium (Chloride) 100 mls @ 100 mls/hr IV Q24H [facility] Stop: 09/16/20 09:59 Influenza Virus Vaccine (Pharmacy To Dose - Influenza Vaccine) 1 each IM DAILY [facility] Insulin Glargine (Insulin Glarg,Human.Rec.Analog 100 Unit/Ml) 15 unit SUBCUT DAILY [facility] Last Admin: 09/12/20 12:23 Dose: 15 units Documented by: VERENICE Insulin Human Lispro (Insulin Lispro 100 Units/Ml 3 Ml Vial) 0 unit SUBCUT WITHMEALSANDBED [facility]; Protocol Last Admin: 09/12/20 12:24 Dose: 6 units Documented by: VERENICE Sodium Chloride (Sodium Chloride 0.9% 10 Ml Syringe) 10 ml FLUSH ASDIRECTED PRN PRN Reason: Keep Vein Open Last Admin: 09/12/20 08:46 Dose: 10 ml Documented by: CASEY Assessment/Plan Comment:: Pt sent from [facility] with c/o dyspnea and found in clinic to be with oxygen saturation of 77% on RA with labored breathing. Patient states he became ill on 09/03/20, came to the ER on 09/05/20 and was COVID positive. He reports generalized body aches, loss of appetite, nausea, dry cough, and shortness of breath. Denies Hx of DM, asthma, or any other chronic diseases. Pt was admitted for Pneumonia due to COVID-19 virus, Acute respiratory failure due to COVID-19, Hyperglycemia High flow O2. Convalescent COVID-19 [place]: Risks and benefits discussed. Pt would like to proceed. Remdesivir: Risks and benefits discussed. Pt would like to proceed. Methylpred Vit D and VIt C Enoxaparin instruction for proning portioning\ inflammatory markers Pt was informed about the unlikely possibility for requiring intubation: and he agrees if needed. DM Lantus Insulin sliding scale Dietitian <Dale Holliday - Last Filed: 09/12/20 16:49> H&P History of Present Illness - General Admit Problem/Dx: Admission Diagnosis/Problem Admission Diagnosis/Problem Respiratory distress Exam - Vital Signs Vital Signs: Last Vital Signs Temp 97.8 F 09/12/20 10:29 Pulse 97 09/12/20 10:29 Resp 24 H 09/12/20 10:29 BP 130/86 09/12/20 10:29 Pulse Ox 92 L 09/12/20 12:40 - Patient Data Lab Results Last 24 hrs: Laboratory Results - last 24 hr 09/12/20 09/12/20 09/12/20 Range/Units 08:43 08:43 08:43 WBC 6.9 (5.0-10.0) 10^3/uL RBC 5.97 (4.6-6.2) 10^6/uL Hgb 15.8 D (14.0-18.0) g/dL Hct 47.2 (40.0-54.0) % MCV 79.1 L (80-100) fL MCH 26.5 L (27.0-34.0) pg MCHC 33.5 (33.0-35.0) g/dL Plt Count 244 (150-450) 10^3/uL Neut % (Auto) 80.4 H (42.2-75.2) % Lymph % (Auto) 13.5 L (20.5-50.1) % [place] % (Auto) 6.0 (2-8) % Eos % (Auto) 0.1 L (1.0-3.0) % Baso % (Auto) 0.0 (0.0-1.0) % Add Manual Diff Yes Neutrophils % (Manual) 78 H (42-75) % Band Neutrophils % 5 % Lymphocytes % (Manual) 12 L (20-50) % Monocytes % (Manual) 5 (2-8) % PT 10.6 (9.0-12.0) SEC INR 1.1 (0.9-1.2) APTT 29.8 (22.0-34.0) SEC D-Dimer, Quantitative 1170 H (0-400) ng/mL ABG pH (7.35-7.45) ABG pCO2 (35-45) mmHg ABG pO2 (70-100) mmHg ABG HCO3 (22-26) mmol/L ABG O2 Saturation (95-100) % ABG Base Excess ((-2)-(+3)) mmol/L Rodrigo Test O2 Delivery Device Sodium 136 (136-145) mmol/L Potassium 3.3 L (3.5-5.1) mmol/L Chloride 98 (98-107) mmol/L Carbon Dioxide 21 (21-32) mmol/L Anion Gap 20.3 H (7-13) mEq/L BUN 11 (7-18) mg/dL Creatinine 0.77 (0.70-1.30) mg/dL Est Cr Clr Drug Dosing TNP Estimated GFR (MDRD) > 60 BUN/Creatinine Ratio 14.3 (No establ ref range) Glucose 263 H (70-99) mg/dL Hemoglobin A1c (<5.7) % Lactic Acid (0.4-2.0) mmol/L Calcium 8.7 (8.5-10.1) mg/dL Ferritin (26-388) mg/mL Total Bilirubin 0.5 (0.2-1.0) mg/dL Direct Bilirubin (0.0-0.2) mg/dL AST 27 (15-37) U/L ALT 48 (16-63) U/L Alkaline Phosphatase 132 H (46-116) U/L Lactate Dehydrogenase 431 H (85-227) U/L Creatine Kinase 38 L (39-308) U/L Troponin I < 0.017 (0.000-0.056) ng/mL C-Reactive Protein 30.4 H (0.0-0.9) mg/dL B-Natriuretic Peptide 10 (0-100) pg/ml Total Protein 8.4 H (6.4-8.2) g/dL Albumin 2.5 L (3.4-5.0) g/dL Globulin 5.9 Albumin/Globulin Ratio 0.42 Blood Type 09/12/20 09/12/20 09/12/20 Range/Units 08:43 08:43 08:43 WBC (5.0-10.0) 10^3/uL RBC (4.6-6.2) 10^6/uL Hgb (14.0-18.0) g/dL Hct (40.0-54.0) % MCV (80-100) fL MCH (27.0-34.0) pg MCHC (33.0-35.0) g/dL Plt Count (150-450) 10^3/uL Neut % (Auto) (42.2-75.2) % Lymph % (Auto) (20.5-50.1) % [place] % (Auto) (2-8) % Eos % (Auto) (1.0-3.0) % Baso % (Auto) (0.0-1.0) % Add Manual Diff Neutrophils % (Manual) (42-75) % Band Neutrophils % % Lymphocytes % (Manual) (20-50) % Monocytes % (Manual) (2-8) % PT (9.0-12.0) SEC INR (0.9-1.2) APTT (22.0-34.0) SEC D-Dimer, Quantitative (0-400) ng/mL ABG pH (7.35-7.45) ABG pCO2 (35-45) mmHg ABG pO2 (70-100) mmHg ABG HCO3 (22-26) mmol/L ABG O2 Saturation (95-100) % ABG Base Excess ((-2)-(+3)) mmol/L Rodrigo Test O2 Delivery Device Sodium (136-145) mmol/L Potassium (3.5-5.1) mmol/L Chloride (98-107) mmol/L Carbon Dioxide (21-32) mmol/L Anion Gap (7-13) mEq/L BUN (7-18) mg/dL Creatinine (0.70-1.30) mg/dL Est Cr Clr Drug Dosing Estimated GFR (MDRD) BUN/Creatinine Ratio (No establ ref range) Glucose (70-99) mg/dL Hemoglobin A1c > 14.0 H (<5.7) % Lactic Acid 1.5 (0.4-2.0) mmol/L Calcium (8.5-10.1) mg/dL Ferritin 724 H (26-388) mg/mL Total Bilirubin (0.2-1.0) mg/dL Direct Bilirubin (0.0-0.2) mg/dL AST (15-37) U/L ALT (16-63) U/L Alkaline Phosphatase (46-116) U/L Lactate Dehydrogenase (85-227) U/L Creatine Kinase (39-308) U/L Troponin I (0.000-0.056) ng/mL C-Reactive Protein (0.0-0.9) mg/dL B-Natriuretic Peptide (0-100) pg/ml Total Protein (6.4-8.2) g/dL Albumin (3.4-5.0) g/dL Globulin Albumin/Globulin Ratio Blood Type 09/12/20 09/12/20 09/12/20 Range/Units 08:43 08:43 09:06 WBC (5.0-10.0) 10^3/uL RBC (4.6-6.2) 10^6/uL Hgb (14.0-18.0) g/dL Hct (40.0-54.0) % MCV (80-100) fL MCH (27.0-34.0) pg MCHC (33.0-35.0) g/dL Plt Count (150-450) 10^3/uL Neut % (Auto) (42.2-75.2) % Lymph % (Auto) (20.5-50.1) % [place] % (Auto) (2-8) % Eos % (Auto) (1.0-3.0) % Baso % (Auto) (0.0-1.0) % Add Manual Diff Neutrophils % (Manual) (42-75) % Band Neutrophils % % Lymphocytes % (Manual) (20-50) % Monocytes % (Manual) (2-8) % PT (9.0-12.0) SEC INR (0.9-1.2) APTT (22.0-34.0) SEC D-Dimer, Quantitative (0-400) ng/mL ABG pH 7.41 (7.35-7.45) ABG pCO2 31 L (35-45) mmHg ABG pO2 62 L (70-100) mmHg ABG HCO3 18.7 L (22-26) mmol/L ABG O2 Saturation 90 L (95-100) % ABG Base Excess -4 L ((-2)-(+3)) mmol/L Rodrigo Test Performed O2 Delivery Device Hi flow nasal cannu Sodium (136-145) mmol/L Potassium (3.5-5.1) mmol/L Chloride (98-107) mmol/L Carbon Dioxide (21-32) mmol/L Anion Gap (7-13) mEq/L BUN (7-18) mg/dL Creatinine (0.70-1.30) mg/dL Est Cr Clr Drug Dosing Estimated GFR (MDRD) BUN/Creatinine Ratio (No establ ref range) Glucose (70-99) mg/dL Hemoglobin A1c (<5.7) % Lactic Acid (0.4-2.0) mmol/L Calcium (8.5-10.1) mg/dL Ferritin (26-388) mg/mL Total Bilirubin (0.2-1.0) mg/dL Direct Bilirubin 0.2 (0.0-0.2) mg/dL AST (15-37) U/L ALT (16-63) U/L Alkaline Phosphatase (46-116) U/L Lactate Dehydrogenase (85-227) U/L Creatine Kinase (39-308) U/L Troponin I (0.000-0.056) ng/mL C-Reactive Protein (0.0-0.9) mg/dL B-Natriuretic Peptide (0-100) pg/ml Total Protein (6.4-8.2) g/dL Albumin (3.4-5.0) g/dL Globulin Albumin/Globulin Ratio Blood Type O POSITIVE Result Diagrams: 09/12/20 08:43 09/12/20 08:43 Orders Last 24hrs: Active Orders 24 hr Category Date Time Status Admission Diagnosis [ADT] Urgent ADT 09/12/20 09:57 Ordered Admission Status [Patient Status] [ADT] Routine ADT 09/12/20 09:57 Active Blood Glucose Check, Bedside [RC] WITHMEALSANDBED Care 09/12/20 11:26 Active Influenza Vaccine Charge [RC] .DISCHARGE Care 09/12/20 10:35 Active Peripheral IV Care [RC] 08,20 Care 09/12/20 08:39 Active Positioning, Patient [RC] ASDIRECTED Care 09/12/20 11:05 Active RT Aerosol Therapy [RC] ASDIRECTED Care 09/12/20 08:40 Active Verify Patient Consent Obtain [RC] ASDIRECTED Care 09/12/20 11:03 Active Consult to Vision Teacher [CONS] Routine Cons 09/12/20 12:58 Active Chest 1V Frontal [CR] Routine Exams 09/14/20 07:00 Ordered ABO/RH TYPE [BBK] Routine Lab 09/12/20 08:43 Results BILIRUBIN DIRECT [CHEM] DAILY Lab 09/13/20 11:15 Ordered BILIRUBIN DIRECT [CHEM] DAILY Lab 09/14/20 11:15 Ordered BILIRUBIN DIRECT [CHEM] DAILY Lab 09/15/20 11:15 Ordered BILIRUBIN DIRECT [CHEM] DAILY Lab 09/16/20 11:15 Ordered BLOOD GAS ARTERIAL [BG] DAILY Lab 09/13/20 07:00 Ordered BLOOD GAS ARTERIAL [BG] DAILY Lab 09/14/20 07:00 Ordered CBC WITH AUTO DIFF [HEME] DAILY Lab 09/13/20 05:00 Ordered CBC WITH AUTO DIFF [HEME] DAILY Lab 09/14/20 05:00 Ordered CBC WITH AUTO DIFF [HEME] DAILY Lab 09/15/20 05:00 Ordered CBC WITH AUTO DIFF [HEME] DAILY Lab 09/16/20 05:00 Ordered CBC WITH AUTO DIFF [HEME] DAILY Lab 09/17/20 05:00 Ordered CBC WITH AUTO DIFF [HEME] DAILY Lab 09/18/20 05:00 Ordered CBC WITH AUTO DIFF [HEME] DAILY Lab 09/19/20 05:00 Ordered CBC WITH AUTO DIFF [HEME] DAILY Lab 09/20/20 05:00 Ordered CBC WITH AUTO DIFF [HEME] DAILY Lab 09/21/20 05:00 Ordered CBC WITH AUTO DIFF [HEME] DAILY Lab 09/22/20 05:00 Ordered CREATINE KINASE,CK [CHEM] Routine Lab 09/13/20 05:00 Ordered CULTURE BLOOD [BC] Stat Lab 09/12/20 09:13 Received D-DIMER QUANTITATIVE [COAG] DAILY Lab 09/13/20 05:00 Ordered D-DIMER QUANTITATIVE [COAG] DAILY Lab 09/14/20 05:00 Ordered D-DIMER QUANTITATIVE [COAG] DAILY Lab 09/15/20 05:00 Ordered D-DIMER QUANTITATIVE [COAG] DAILY Lab 09/16/20 05:00 Ordered D-DIMER QUANTITATIVE [COAG] DAILY Lab 09/17/20 05:00 Ordered D-DIMER QUANTITATIVE [COAG] DAILY Lab 09/18/20 05:00 Ordered D-DIMER QUANTITATIVE [COAG] DAILY Lab 09/19/20 05:00 Ordered D-DIMER QUANTITATIVE [COAG] DAILY Lab 09/20/20 05:00 Ordered D-DIMER QUANTITATIVE [COAG] DAILY Lab 09/21/20 05:00 Ordered D-DIMER QUANTITATIVE [COAG] DAILY Lab 09/22/20 05:00 Ordered FERRITIN [CHEM] Routine Lab 09/14/20 05:00 Ordered FRESH FROZEN PLASMA [BBK] Routine Lab 09/12/20 08:43 Results INR,PT,PROTHROMBIN TIME [COAG] Routine Lab 09/13/20 11:07 Ordered PROCALCITONIN [REF] DAILY Lab 09/13/20 05:00 Ordered PROCALCITONIN [REF] DAILY Lab 09/14/20 05:00 Ordered PROCALCITONIN [REF] DAILY Lab 09/15/20 05:00 Ordered PROCALCITONIN [REF] DAILY Lab 09/16/20 05:00 Ordered PROCALCITONIN [REF] DAILY Lab 09/17/20 05:00 Ordered PROCALCITONIN [REF] DAILY Lab 09/18/20 05:00 Ordered PROCALCITONIN [REF] DAILY Lab 09/19/20 05:00 Ordered PROCALCITONIN [REF] DAILY Lab 09/20/20 05:00 Ordered PROCALCITONIN [REF] DAILY Lab 09/21/20 05:00 Ordered PROCALCITONIN [REF] DAILY Lab 09/22/20 05:00 Ordered Acetaminophen [TylenoL] Med 09/12/20 11:03 Active 650 mg PO Q4H PRN Ascorbic Acid [Vitamin C] Med 09/12/20 11:45 Active 500 mg PO DAILY Cholecalciferol (Vitamin D3) [Vitamin D3] Med 09/12/20 11:45 Active 25 mcg PO DAILY Dextrose 50% in Water Med 09/12/20 11:26 Active 50 ml IV Q15M PRN Enoxaparin [Lovenox] Med 09/12/20 11:45 Active 100 mg SUBCUT Q12HR Glucagon,Human Recombinant [GlucaGen] Med 09/12/20 11:26 Active 1 mg IM Q15M PRN Insulin Glarg,Human.Rec.Analog [LantUS] Med 09/12/20 11:30 Active 15 unit SUBCUT DAILY Insulin Lispro [HumaLOG] Med 09/12/20 12:00 Active See Dose Instructions SUBCUT WITHMEALSANDBED Pharmacy to Dose - InFluenza V [Pharmacy to Dose - Med 09/13/20 09:00 Active InFluenza Vaccine] 1 each IM DAILY Remdesivir 100 mg [facility] 09/13/20 09:00 Active Sodium Chloride 0.9% [Normal Saline] 100 ml IV Q24H Sodium Chloride 0.9% [Saline Flush] Med 09/12/20 08:39 Active 10 ml FLUSH ASDIRECTED PRN dexAMETHasone [Decadron] Med 09/13/20 09:00 Active 6 mg IVPUSH DAILY Isolation [COMM] Stat Ot 09/12/20 11:03 Active Peripheral IV Insertion Adult [OM.PC] Stat Ot 09/12/20 08:38 Ordered Transfuse Fresh Frozen Plasma [COMM] Routine Ot 09/12/20 11:03 Ordered Medication Orders Acetaminophen (Acetaminophen 325 Mg Tab) 650 mg PO Q4H PRN PRN Reason: Fever Greater Than 101 Ascorbic Acid (Ascorbic Acid 500 Mg Tab) 500 mg PO DAILY [facility] Last Admin: 09/12/20 12:10 Dose: 500 mg Documented by: VERENICE Cholecalciferol (Cholecalciferol (Vitamin D3) 25 Mcg Tab) 25 mcg PO DAILY [facility] Last Admin: 09/12/20 12:10 Dose: 25 mcg Documented by: VERENICE Dexamethasone (Dexamethasone 4 Mg/Ml Sdv) 6 mg IVPUSH DAILY [facility] Stop: 09/22/20 09:01 Dextrose/Water (50% Dextrose In Water 50 Ml Syringe) 50 ml IV Q15M PRN PRN Reason: Hypoglycemia Enoxaparin Sodium (Enoxaparin 100 Mg/1 Ml Syringe) 100 mg SUBCUT Q12HR [facility] Last Admin: 09/12/20 12:16 Dose: 100 mg Documented by: VERENICE Glucagon (Glucagon,Human Recombinant 1 Mg Vial) 1 mg IM Q15M PRN PRN Reason: Hypoglycemia Remdesivir 100 mg/ Sodium (Chloride) 100 mls @ 100 mls/hr IV Q24H [facility] Stop: 09/16/20 09:59 Influenza Virus Vaccine (Pharmacy To Dose - Influenza Vaccine) 1 each IM DAILY [facility] Insulin Glargine (Insulin Glarg,Human.Rec.Analog 100 Unit/Ml) 15 unit SUBCUT DAILY [facility] Last Admin: 09/12/20 12:23 Dose: 15 units Documented by: VERENICE Insulin Human Lispro (Insulin Lispro 100 Units/Ml 3 Ml Vial) 0 unit SUBCUT WITHMEALSANDBED [facility]; Protocol Last Admin: 09/12/20 12:24 Dose: 6 units Documented by: VERENICE Sodium Chloride (Sodium Chloride 0.9% 10 Ml Syringe) 10 ml FLUSH ASDIRECTED PRN PRN Reason: Keep Vein Open Last Admin: 09/12/20 08:46 Dose: 10 ml Documented by: CASEY
[2020-09-12] MEDS ORDERED: guaiFENesin 100 MG/5 ML Soln 5 ML UD Cup PO PRN (16:49)
[2020-09-12] MEDS: cefTRIAXone 1 GM in Sodium Chloride 0.9% 50 ML IV SCH (17:13)
[2020-09-13] MEDS ORDERED: Water For Injection, Sterile 40 ML ONE (02:21)
[2020-09-13] MEDS: Insulin Lispro 100 Units/ML 3 ML Vial SUBCUT SCH ×4 (08:44→22:22)
[2020-09-13] MEDS: Insulin Glarg,Human.Rec.Analog 100 Unit/ML SUBCUT SCH (08:45)
[2020-09-13] MEDS: Enoxaparin 100 MG/1 ML Syringe SUBCUT SCH ×2 (08:46→22:08)
[2020-09-13] MEDS: Dexamethasone 4 MG/ML SDV IVPUSH SCH (08:47)
[2020-09-13] MEDS: Cholecalciferol (Vitamin D3) 25 MCG Tab PO SCH (08:47)
[2020-09-13] MEDS: Ascorbic Acid 500 MG Tab PO SCH (08:47)
[2020-09-13] MEDS: REMDESIVIR 100 MG in Sodium Chloride 0.9% 100 ML IV SCH (09:57)
[2020-09-13] MEDS: VANCOmycin 1.5 GM/300 ML 1.5 GM in Premix Bag 1 BAG IV SCH ×2 (11:16→18:39)
--- NOTE | 2020-09-13 12:17 | PCM.PN ---
- General Info Date of Service: 09/13/20 Admission Dx/Problem (Free Text): Feeling better, less SOB, less myalgia Functional Status: Reports: Tolerating Diet - Review of Systems General: Denies: Fever Pulmonary: Reports: Shortness of Breath Cardiovascular: Denies: Chest Pain Gastrointestinal: Denies: Abdominal Pain Neurological: Denies: Confusion Psychiatric: Denies: Confusion - Patient Data Vitals - Most Recent: Last Vital Signs Temp 96.0 F L 09/13/20 11:37 Pulse 89 09/13/20 11:37 Resp 30 H 09/13/20 11:37 BP 120/63 09/13/20 11:37 Pulse Ox 94 L 09/13/20 11:37 Weight - Most Recent: 253 lb 9.6 oz I&O - Last 24 Hours: Intake & Output 09/12/20 09/13/20 09/13/20 22:59 06:59 14:59 Intake Total 600 700 440 Balance 600 700 440 Lab Results Last 24 Hours: Laboratory Results - last 24 hr 09/12/20 09/12/20 09/12/20 Range/Units 08:43 12:09 17:09 WBC (5.0-10.0) 10^3/uL RBC (4.6-6.2) 10^6/uL Hgb (14.0-18.0) g/dL Hct (40.0-54.0) % MCV (80-100) fL MCH (27.0-34.0) pg MCHC (33.0-35.0) g/dL Plt Count (150-450) 10^3/uL Neut % (Auto) (42.2-75.2) % Lymph % (Auto) (20.5-50.1) % [place] % (Auto) (2-8) % Eos % (Auto) (1.0-3.0) % Baso % (Auto) (0.0-1.0) % Add Manual Diff Neutrophils % (Manual) (42-75) % Lymphocytes % (Manual) (20-50) % Atypical Lymphs % % Monocytes % (Manual) (2-8) % PT (9.0-12.0) SEC INR (0.9-1.2) D-Dimer, Quantitative (0-400) ng/mL POC Glucose 298 H 297 H (70-105) mg/dl Direct Bilirubin (0.0-0.2) mg/dL Creatine Kinase (39-308) U/L Blood Type O POSITIVE 09/12/20 09/13/20 09/13/20 Range/Units 21:04 06:25 06:25 WBC 4.7 L (5.0-10.0) 10^3/uL RBC 5.30 (4.6-6.2) 10^6/uL Hgb 14.0 D (14.0-18.0) g/dL Hct 41.9 (40.0-54.0) % MCV 79.1 L (80-100) fL MCH 26.4 L (27.0-34.0) pg MCHC 33.4 (33.0-35.0) g/dL Plt Count 284 (150-450) 10^3/uL Neut % (Auto) 58.0 (42.2-75.2) % Lymph % (Auto) 31.5 (20.5-50.1) % [place] % (Auto) 10.3 H (2-8) % Eos % (Auto) 0.0 L (1.0-3.0) % Baso % (Auto) 0.2 (0.0-1.0) % Add Manual Diff Yes Neutrophils % (Manual) 65 (42-75) % Lymphocytes % (Manual) 24 (20-50) % Atypical Lymphs % 4 % Monocytes % (Manual) 7 (2-8) % PT (9.0-12.0) SEC INR (0.9-1.2) D-Dimer, Quantitative 732 H (0-400) ng/mL POC Glucose 283 H (70-105) mg/dl Direct Bilirubin (0.0-0.2) mg/dL Creatine Kinase (39-308) U/L Blood Type 09/13/20 09/13/20 09/13/20 Range/Units 06:25 06:25 06:25 WBC (5.0-10.0) 10^3/uL RBC (4.6-6.2) 10^6/uL Hgb (14.0-18.0) g/dL Hct (40.0-54.0) % MCV (80-100) fL MCH (27.0-34.0) pg MCHC (33.0-35.0) g/dL Plt Count (150-450) 10^3/uL Neut % (Auto) (42.2-75.2) % Lymph % (Auto) (20.5-50.1) % [place] % (Auto) (2-8) % Eos % (Auto) (1.0-3.0) % Baso % (Auto) (0.0-1.0) % Add Manual Diff Neutrophils % (Manual) (42-75) % Lymphocytes % (Manual) (20-50) % Atypical Lymphs % % Monocytes % (Manual) (2-8) % PT 10.8 (9.0-12.0) SEC INR 1.1 (0.9-1.2) D-Dimer, Quantitative (0-400) ng/mL POC Glucose (70-105) mg/dl Direct Bilirubin 0.1 (0.0-0.2) mg/dL Creatine Kinase 24 L (39-308) U/L Blood Type 09/13/20 09/13/20 Range/Units 08:23 11:27 WBC (5.0-10.0) 10^3/uL RBC (4.6-6.2) 10^6/uL Hgb (14.0-18.0) g/dL Hct (40.0-54.0) % MCV (80-100) fL MCH (27.0-34.0) pg MCHC (33.0-35.0) g/dL Plt Count (150-450) 10^3/uL Neut % (Auto) (42.2-75.2) % Lymph % (Auto) (20.5-50.1) % [place] % (Auto) (2-8) % Eos % (Auto) (1.0-3.0) % Baso % (Auto) (0.0-1.0) % Add Manual Diff Neutrophils % (Manual) (42-75) % Lymphocytes % (Manual) (20-50) % Atypical Lymphs % % Monocytes % (Manual) (2-8) % PT (9.0-12.0) SEC INR (0.9-1.2) D-Dimer, Quantitative (0-400) ng/mL POC Glucose 240 H 356 H (70-105) mg/dl Direct Bilirubin (0.0-0.2) mg/dL Creatine Kinase (39-308) U/L Blood Type Yao Results Last 24 Hours: Microbiology 09/12/20 09:13 Aerobic Blood Culture - Preliminary Blood - Venous - Iv Start NO GROWTH AFTER 1 DAY Anaerobic Blood Culture - Preliminary NO GROWTH AFTER 1 DAY Med Orders - Current: Current Medications Acetaminophen (Acetaminophen 325 Mg Tab) 650 mg PO Q4H PRN PRN Reason: Fever Greater Than 101 Ascorbic Acid (Ascorbic Acid 500 Mg Tab) 500 mg PO DAILY [facility] Last Admin: 09/13/20 08:47 Dose: 500 mg Documented by: Cholecalciferol (Cholecalciferol (Vitamin D3) 25 Mcg Tab) 25 mcg PO DAILY [facility] Last Admin: 09/13/20 08:47 Dose: 25 mcg Documented by: Dexamethasone (Dexamethasone 4 Mg/Ml Sdv) 6 mg IVPUSH DAILY [facility] Stop: 09/22/20 09:01 Last Admin: 09/13/20 08:47 Dose: 6 mg Documented by: Dextrose/Water (50% Dextrose In Water 50 Ml Syringe) 50 ml IV Q15M PRN PRN Reason: Hypoglycemia Enoxaparin Sodium (Enoxaparin 100 Mg/1 Ml Syringe) 100 mg SUBCUT Q12HR [facility] Last Admin: 09/13/20 08:46 Dose: 100 mg Documented by: Glucagon (Glucagon,Human Recombinant 1 Mg Vial) 1 mg IM Q15M PRN PRN Reason: Hypoglycemia Guaifenesin (Guaifenesin 100 Mg/5 Ml Soln 5 Ml Ud Cup) 100 mg PO Q6H PRN PRN Reason: Cough Remdesivir 100 mg/ Sodium (Chloride) 100 mls @ 100 mls/hr IV Q24H [facility] Stop: 09/16/20 09:59 Last Admin: 09/13/20 09:57 Dose: 100 mls/hr Documented by: Azithromycin 500 mg/ Sodium (Chloride) 250 mls @ 250 mls/hr IV Q24H [facility] Ceftriaxone Sodium 1 gm/ (Sodium Chloride) 50 mls @ 100 mls/hr IV Q24H [facility] Last Admin: 09/12/20 17:13 Dose: 100 mls/hr Documented by: Vancomycin HCl 1.5 gm/ Premix 300 mls @ 200 mls/hr IV Q8H [facility] Last Admin: 09/13/20 11:16 Dose: 200 mls/hr Documented by: Influenza Virus Vaccine (Pharmacy To Dose - Influenza Vaccine) 1 each IM DAILY [facility] Last Admin: 09/13/20 08:35 Dose: Not Given Documented by: Insulin Glargine (Insulin Glarg,Human.Rec.Analog 100 Unit/Ml) 15 unit SUBCUT DAILY [facility] Last Admin: 09/13/20 08:45 Dose: 15 units Documented by: Insulin Human Lispro (Insulin Lispro 100 Units/Ml 3 Ml Vial) 0 unit SUBCUT WITHMEALSANDBED [facility]; Protocol Last Admin: 09/13/20 08:44 Dose: 6 units Documented by: Sodium Chloride (Sodium Chloride 0.9% 10 Ml Syringe) 10 ml FLUSH ASDIRECTED PRN PRN Reason: Keep Vein Open Last Admin: 09/12/20 08:46 Dose: 10 ml Documented by: Vancomycin HCl (Pharmacy To Dose - Vancomycin) 1 dose .XX ASDIRECTED JOSE DANIEL Discontinued Medications Albuterol/Ipratropium (Albuterol/Ipratropium 3.0-0.5 Mg/3 Ml Neb Soln) 3 ml NEB ONETIME ONE Stop: 09/12/20 08:41 Last Admin: 09/12/20 09:03 Dose: 3 ml Documented by: Dexamethasone (Dexamethasone 4 Mg/Ml Sdv) 6 mg IVPUSH ONETIME ONE Stop: 09/12/20 08:41 Last Admin: 09/12/20 09:02 Dose: 6 mg Documented by: Azithromycin 500 mg/ Sodium (Chloride) 250 mls @ 250 mls/hr IV ONETIME ONE Stop: 09/12/20 09:39 Last Admin: 09/12/20 09:01 Dose: 250 mls/hr Documented by: Remdesivir 200 mg/ Sodium (Chloride) 250 mls @ 250 mls/hr IV ONETIME ONE Stop: 09/12/20 12:59 Last Admin: 09/12/20 12:18 Dose: 250 mls/hr Documented by: Vancomycin HCl 1,500 mg/ (Sodium Chloride) 500 mls @ 333.333 mls/hr IV Q8H [facility] Last Admin: 09/13/20 02:41 Dose: 333.333 mls/hr Documented by: Sterile Water (Sterile Water For Injection) Confirm Administered Dose 40 mls @ as directed .ROUTE .STK-MED ONE Stop: 09/13/20 02:22 Last Admin: 09/13/20 02:41 Dose: 0.1 mls/hr Documented by: - Exam Quality Assessment: Supplemental Oxygen General: Alert, Oriented, Mild Distress HEENT: Other (on high flow O2) Back Exam: Full Range of Motion Extremities: Normal Inspection Skin: Intact Neurological: No New Focal Deficit Psy/Mental Status: Alert, Normal Affect - Patient Data Lab Results Last 24 hrs: Laboratory Results - last 24 hr 09/12/20 09/12/20 09/12/20 Range/Units 08:43 12:09 17:09 WBC (5.0-10.0) 10^3/uL RBC (4.6-6.2) 10^6/uL Hgb (14.0-18.0) g/dL Hct (40.0-54.0) % MCV (80-100) fL MCH (27.0-34.0) pg MCHC (33.0-35.0) g/dL Plt Count (150-450) 10^3/uL Neut % (Auto) (42.2-75.2) % Lymph % (Auto) (20.5-50.1) % [place] % (Auto) (2-8) % Eos % (Auto) (1.0-3.0) % Baso % (Auto) (0.0-1.0) % Add Manual Diff Neutrophils % (Manual) (42-75) % Lymphocytes % (Manual) (20-50) % Atypical Lymphs % % Monocytes % (Manual) (2-8) % PT (9.0-12.0) SEC INR (0.9-1.2) D-Dimer, Quantitative (0-400) ng/mL POC Glucose 298 H 297 H (70-105) mg/dl Direct Bilirubin (0.0-0.2) mg/dL Creatine Kinase (39-308) U/L Blood Type O POSITIVE 09/12/20 09/13/20 09/13/20 Range/Units 21:04 06:25 06:25 WBC 4.7 L (5.0-10.0) 10^3/uL RBC 5.30 (4.6-6.2) 10^6/uL Hgb 14.0 D (14.0-18.0) g/dL Hct 41.9 (40.0-54.0) % MCV 79.1 L (80-100) fL MCH 26.4 L (27.0-34.0) pg MCHC 33.4 (33.0-35.0) g/dL Plt Count 284 (150-450) 10^3/uL Neut % (Auto) 58.0 (42.2-75.2) % Lymph % (Auto) 31.5 (20.5-50.1) % [place] % (Auto) 10.3 H (2-8) % Eos % (Auto) 0.0 L (1.0-3.0) % Baso % (Auto) 0.2 (0.0-1.0) % Add Manual Diff Yes Neutrophils % (Manual) 65 (42-75) % Lymphocytes % (Manual) 24 (20-50) % Atypical Lymphs % 4 % Monocytes % (Manual) 7 (2-8) % PT (9.0-12.0) SEC INR (0.9-1.2) D-Dimer, Quantitative 732 H (0-400) ng/mL POC Glucose 283 H (70-105) mg/dl Direct Bilirubin (0.0-0.2) mg/dL Creatine Kinase (39-308) U/L Blood Type 09/13/20 09/13/20 09/13/20 Range/Units 06:25 06:25 06:25 WBC (5.0-10.0) 10^3/uL RBC (4.6-6.2) 10^6/uL Hgb (14.0-18.0) g/dL Hct (40.0-54.0) % MCV (80-100) fL MCH (27.0-34.0) pg MCHC (33.0-35.0) g/dL Plt Count (150-450) 10^3/uL Neut % (Auto) (42.2-75.2) % Lymph % (Auto) (20.5-50.1) % [place] % (Auto) (2-8) % Eos % (Auto) (1.0-3.0) % Baso % (Auto) (0.0-1.0) % Add Manual Diff Neutrophils % (Manual) (42-75) % Lymphocytes % (Manual) (20-50) % Atypical Lymphs % % Monocytes % (Manual) (2-8) % PT 10.8 (9.0-12.0) SEC INR 1.1 (0.9-1.2) D-Dimer, Quantitative (0-400) ng/mL POC Glucose (70-105) mg/dl Direct Bilirubin 0.1 (0.0-0.2) mg/dL Creatine Kinase 24 L (39-308) U/L Blood Type 09/13/20 09/13/20 Range/Units 08:23 11:27 WBC (5.0-10.0) 10^3/uL RBC (4.6-6.2) 10^6/uL Hgb (14.0-18.0) g/dL Hct (40.0-54.0) % MCV (80-100) fL MCH (27.0-34.0) pg MCHC (33.0-35.0) g/dL Plt Count (150-450) 10^3/uL Neut % (Auto) (42.2-75.2) % Lymph % (Auto) (20.5-50.1) % [place] % (Auto) (2-8) % Eos % (Auto) (1.0-3.0) % Baso % (Auto) (0.0-1.0) % Add Manual Diff Neutrophils % (Manual) (42-75) % Lymphocytes % (Manual) (20-50) % Atypical Lymphs % % Monocytes % (Manual) (2-8) % PT (9.0-12.0) SEC INR (0.9-1.2) D-Dimer, Quantitative (0-400) ng/mL POC Glucose 240 H 356 H (70-105) mg/dl Direct Bilirubin (0.0-0.2) mg/dL Creatine Kinase (39-308) U/L Blood Type Result Diagrams: 09/13/20 06:25 09/12/20 08:43 Yao Results Last 24 hrs: Microbiology 09/12/20 09:13 Aerobic Blood Culture - Preliminary Blood - Venous - Iv Start NO GROWTH AFTER 1 DAY Anaerobic Blood Culture - Preliminary NO GROWTH AFTER 1 DAY Sepsis Event Note - Evaluation Sepsis Screening Result: No Definite Risk - Focused Exam Vital Signs: Vital Signs Temp Pulse Resp BP BP Pulse Ox Pulse Ox 09/13/20 11:37 96.0 F L 89 30 H 120/63 94 L 09/13/20 09:05 89 L 09/13/20 08:00 96.1 F L 85 26 H 117/57 L 91 L 09/13/20 05:10 82 28 H 91 L 09/13/20 02:38 98.9 F 85 29 H 124/66 90 L 09/13/20 00:40 76 31 H 98 - Problem List Review Problem List Initiated/Reviewed/Updated: Yes - My Orders Last 24 Hours: My Active Orders 09/12/20 11:26 Blood Glucose Check, Bedside [RC] WITHMEALSANDBED Dextrose 50% in Water 50 ml IV Q15M PRN Glucagon,Human Recombinant [GlucaGen] 1 mg IM Q15M PRN 09/12/20 11:30 Insulin Glarg,Human.Rec.Analog [LantUS] 15 unit SUBCUT DAILY 09/12/20 11:45 Ascorbic Acid [Vitamin C] 500 mg PO DAILY Cholecalciferol (Vitamin D3) [Vitamin D3] 25 mcg PO DAILY Enoxaparin [Lovenox] 100 mg SUBCUT Q12HR 09/12/20 12:00 Insulin Lispro [HumaLOG] See Dose Instructions SUBCUT WITHMEALSANDBED 09/12/20 12:58 Consult to [employer] [CONS] Routine 09/12/20 16:45 Pharmacy to Dose - Vancomycin 1 dose .XX ASDIRECTED 09/12/20 16:49 guaiFENesin [Robitussin] 100 mg PO Q6H PRN 09/12/20 17:00 cefTRIAXone [Rocephin] 1 gm Sodium Chloride 0.9% [Normal Saline] 50 ml IV Q24H 09/12/20 17:32 CULTURE MRSA CLEARANCE [RM] Routine 09/13/20 06:25 PROCALCITONIN [REF] DAILY 09/13/20 Breakfast Consistent Carbohydrate Diet [DIET] 09/13/20 08:17 Resuscitation Status Routine 09/13/20 09:00 Pharmacy to Dose - InFluenza V [Pharmacy to Dose - InFluenza Vaccine] 1 each IM DAILY Remdesivir 100 mg Sodium Chloride 0.9% [Normal Saline] 100 ml IV Q24H dexAMETHasone [Decadron] 6 mg IVPUSH DAILY 09/13/20 10:00 VANCOmycin 1.5 GM/300 ML 1.5 gm Premix Bag 1 bag IV Q8H 09/13/20 13:00 Azithromycin [Zithromax] 500 mg Sodium Chloride 0.9% [Normal Saline (AdvBag)] 250 ml IV Q24H 09/14/20 05:00 CBC WITH AUTO DIFF [HEME] DAILY D-DIMER QUANTITATIVE [COAG] DAILY FERRITIN [CHEM] Routine PROCALCITONIN [REF] DAILY 09/14/20 07:00 Chest 1V Frontal [CR] Routine BLOOD GAS ARTERIAL [BG] DAILY 09/14/20 11:15 BILIRUBIN DIRECT [CHEM] DAILY 09/15/20 05:00 CBC WITH AUTO DIFF [HEME] DAILY D-DIMER QUANTITATIVE [COAG] DAILY PROCALCITONIN [REF] DAILY 09/15/20 11:15 BILIRUBIN DIRECT [CHEM] DAILY 09/16/20 05:00 CBC WITH AUTO DIFF [HEME] DAILY D-DIMER QUANTITATIVE [COAG] DAILY PROCALCITONIN [REF] DAILY 09/16/20 11:15 BILIRUBIN DIRECT [CHEM] DAILY 09/17/20 05:00 CBC WITH AUTO DIFF [HEME] DAILY D-DIMER QUANTITATIVE [COAG] DAILY PROCALCITONIN [REF] DAILY 09/18/20 05:00 CBC WITH AUTO DIFF [HEME] DAILY D-DIMER QUANTITATIVE [COAG] DAILY PROCALCITONIN [REF] DAILY 09/19/20 05:00 CBC WITH AUTO DIFF [HEME] DAILY D-DIMER QUANTITATIVE [COAG] DAILY PROCALCITONIN [REF] DAILY 09/20/20 05:00 CBC WITH AUTO DIFF [HEME] DAILY D-DIMER QUANTITATIVE [COAG] DAILY PROCALCITONIN [REF] DAILY 09/21/20 05:00 CBC WITH AUTO DIFF [HEME] DAILY D-DIMER QUANTITATIVE [COAG] DAILY PROCALCITONIN [REF] DAILY 09/22/20 05:00 CBC WITH AUTO DIFF [HEME] DAILY D-DIMER QUANTITATIVE [COAG] DAILY PROCALCITONIN [REF] DAILY - Plan Plan:: Pt sent from [facility] with c/o dyspnea and found in clinic to be with oxygen saturation of 77% on RA with labored breathing. Patient states he became ill on 09/03/20, came to the ER on 09/05/20 and was COVID positive. He reports generalized body aches, loss of appetite, nausea, dry cough, and shortness of breath. Denies Hx of DM, asthma, or any other chronic diseases. Pt was admitted for Pneumonia due to COVID-19 virus, Acute respiratory failure due to COVID-19, Hyperglycemia High flow O2. Convalescent COVID-19 [place]: ( September 12) Remdesivir: ( stared September 12) Risks and benefits discussed. Pt would like to proceed. Methylpred ( stared September 12) Vit D and VIt C Enoxaparin instruction for proning portioning inflammatory markers Vanoc till neg MRSA screen Continue with Zithromax and Ceftriaxone : Awaiting Procal DM Lantus Insulin sliding scale Dietitian
[2020-09-13] MEDS: Azithromycin 500 MG in Sodium Chloride 0.9% 250 ML IV SCH (12:35)
[2020-09-13] MEDS: cefTRIAXone 1 GM in Sodium Chloride 0.9% 50 ML IV SCH (17:30)
[2020-09-13] MEDS: Sodium Chloride 0.9% 10 ML Syringe FLUSH PRN (22:31)
[2020-09-14] MEDS: VANCOmycin 1.5 GM/300 ML 1.5 GM in Premix Bag 1 BAG IV SCH (02:43)
[2020-09-14] MEDS ORDERED: Vancomycin 2 GM in Sodium Chloride 0.9% 500 ML IV SCH ×2 (03:00→10:00)
[2020-09-14] MEDS: Sodium Chloride 0.9% 10 ML Syringe FLUSH PRN ×2 (05:16→22:00)
[2020-09-14] MEDS: Dexamethasone 4 MG/ML SDV IVPUSH SCH (08:16)
[2020-09-14] MEDS: Enoxaparin 100 MG/1 ML Syringe SUBCUT SCH (08:16)
[2020-09-14] MEDS: Cholecalciferol (Vitamin D3) 25 MCG Tab PO SCH (08:16)
[2020-09-14] MEDS: Ascorbic Acid 500 MG Tab PO SCH (08:16)
[2020-09-14] MEDS: REMDESIVIR 100 MG in Sodium Chloride 0.9% 100 ML IV SCH (08:47)
[2020-09-14] MEDS: Insulin Lispro 100 Units/ML 3 ML Vial SUBCUT SCH ×4 (08:49→21:58)
[2020-09-14] MEDS: Insulin Glarg,Human.Rec.Analog 100 Unit/ML SUBCUT SCH ×2 (08:50→12:37)
--- NOTE | 2020-09-14 09:54 | CR ---
PROCEDURE INFORMATION: Exam: XR Chest Exam date and time: 09/14/2020 9:34 AM Age: 25 years old Clinical indication: Other: Respiratory failure; Patient HX: Covid + TECHNIQUE: Imaging protocol: XR of the chest. Views: 1 view. COMPARISON: CT Chest wo Cont, Chest wo Cont 09/12/2020 9:24 AM FINDINGS: Lungs: Severe diffuse bilateral lung consolidation sparing only the bilateral lung apices. Pleural spaces: Normal. Heart/Mediastinum: Normal heart and cardio-mediastinal silhouette. Vasculature: Normal pulmonary vessels and width of the vascular pedicle. Bones/joints: Intact and normally aligned. No suspicious lesion. IMPRESSION: Unchanged severe diffuse bilateral pneumonia.
[2020-09-14] MEDS ORDERED: 50% Dextrose in Water 50 ML Syringe IV PRN (11:51)
[2020-09-14] MEDS ORDERED: Glucagon,Human Recombinant 1 MG Vial IM PRN (11:51)
--- NOTE | 2020-09-14 12:08 | PCM.PN ---
- General Info Date of Service: 09/14/20 Subjective Update: Feeling better. Less SOB, less body ache. - Review of Systems General: Reports: Other (less distress). Denies: Fever Pulmonary: Reports: Shortness of Breath Cardiovascular: Denies: Chest Pain Gastrointestinal: Denies: Abdominal Pain Neurological: Denies: Confusion Psychiatric: Denies: Confusion - Patient Data Vitals - Most Recent: Last Vital Signs Temp 97.3 F 09/14/20 08:00 Pulse 78 09/14/20 08:00 Resp 22 H 09/14/20 08:00 BP 134/68 09/14/20 08:00 Pulse Ox 92 L 09/14/20 08:00 Weight - Most Recent: 253 lb 9.6 oz I&O - Last 24 Hours: Intake & Output 09/13/20 09/14/20 09/14/20 22:59 06:59 14:59 Intake Total 600 664 250 Balance 600 664 250 Lab Results Last 24 Hours: Laboratory Results - last 24 hr 09/12/20 09/13/20 09/13/20 Range/Units 08:43 06:25 16:39 WBC (5.0-10.0) 10^3/uL RBC (4.6-6.2) 10^6/uL Hgb (14.0-18.0) g/dL Hct (40.0-54.0) % MCV (80-100) fL MCH (27.0-34.0) pg MCHC (33.0-35.0) g/dL Plt Count (150-450) 10^3/uL Neut % (Auto) (42.2-75.2) % Lymph % (Auto) (20.5-50.1) % [place] % (Auto) (2-8) % Eos % (Auto) (1.0-3.0) % Baso % (Auto) (0.0-1.0) % D-Dimer, Quantitative (0-400) ng/mL POC Glucose 324 H (70-105) mg/dl Ferritin (26-388) mg/mL Direct Bilirubin (0.0-0.2) mg/dL Procalcitonin 0.15 H 0.16 H ng/mL Vancomycin Trough (10.0-20.0) ug/mL 09/13/20 09/14/20 09/14/20 Range/Units 22:07 01:30 06:32 WBC 6.3 (5.0-10.0) 10^3/uL RBC 4.93 (4.6-6.2) 10^6/uL Hgb 13.1 L (14.0-18.0) g/dL Hct 39.3 L (40.0-54.0) % MCV 79.7 L (80-100) fL MCH 26.6 L (27.0-34.0) pg MCHC 33.3 (33.0-35.0) g/dL Plt Count 275 (150-450) 10^3/uL Neut % (Auto) 61.1 (42.2-75.2) % Lymph % (Auto) 29.2 (20.5-50.1) % [place] % (Auto) 9.3 H (2-8) % Eos % (Auto) 0.2 L (1.0-3.0) % Baso % (Auto) 0.2 (0.0-1.0) % D-Dimer, Quantitative (0-400) ng/mL POC Glucose 273 H (70-105) mg/dl Ferritin (26-388) mg/mL Direct Bilirubin (0.0-0.2) mg/dL Procalcitonin ng/mL Vancomycin Trough 7.6 L (10.0-20.0) ug/mL 09/14/20 09/14/20 09/14/20 Range/Units 06:32 06:32 06:32 WBC (5.0-10.0) 10^3/uL RBC (4.6-6.2) 10^6/uL Hgb (14.0-18.0) g/dL Hct (40.0-54.0) % MCV (80-100) fL MCH (27.0-34.0) pg MCHC (33.0-35.0) g/dL Plt Count (150-450) 10^3/uL Neut % (Auto) (42.2-75.2) % Lymph % (Auto) (20.5-50.1) % [place] % (Auto) (2-8) % Eos % (Auto) (1.0-3.0) % Baso % (Auto) (0.0-1.0) % D-Dimer, Quantitative 327 (0-400) ng/mL POC Glucose (70-105) mg/dl Ferritin 600 H (26-388) mg/mL Direct Bilirubin 0.1 (0.0-0.2) mg/dL Procalcitonin ng/mL Vancomycin Trough (10.0-20.0) ug/mL 09/14/20 09/14/20 Range/Units 08:14 11:03 WBC (5.0-10.0) 10^3/uL RBC (4.6-6.2) 10^6/uL Hgb (14.0-18.0) g/dL Hct (40.0-54.0) % MCV (80-100) fL MCH (27.0-34.0) pg MCHC (33.0-35.0) g/dL Plt Count (150-450) 10^3/uL Neut % (Auto) (42.2-75.2) % Lymph % (Auto) (20.5-50.1) % [place] % (Auto) (2-8) % Eos % (Auto) (1.0-3.0) % Baso % (Auto) (0.0-1.0) % D-Dimer, Quantitative (0-400) ng/mL POC Glucose 227 H 315 H (70-105) mg/dl Ferritin (26-388) mg/mL Direct Bilirubin (0.0-0.2) mg/dL Procalcitonin ng/mL Vancomycin Trough (10.0-20.0) ug/mL Yao Results Last 24 Hours: Microbiology 09/12/20 09:13 Aerobic Blood Culture - Preliminary Blood - Venous - Iv Start NO GROWTH AFTER 2 DAYS Anaerobic Blood Culture - Preliminary NO GROWTH AFTER 2 DAYS 09/12/20 17:32 MRSA Clearance Screen - Final Nose, Unspecified NO MRSA ISOLATED Med Orders - Current: Current Medications Acetaminophen (Acetaminophen 325 Mg Tab) 650 mg PO Q4H PRN PRN Reason: Fever Greater Than 101 Ascorbic Acid (Ascorbic Acid 500 Mg Tab) 500 mg PO DAILY [facility] Last Admin: 09/14/20 08:16 Dose: 500 mg Documented by: Cholecalciferol (Cholecalciferol (Vitamin D3) 25 Mcg Tab) 25 mcg PO DAILY [facility] Last Admin: 09/14/20 08:16 Dose: 25 mcg Documented by: Dexamethasone (Dexamethasone 4 Mg/Ml Sdv) 6 mg IVPUSH DAILY [facility] Stop: 09/22/20 09:01 Last Admin: 09/14/20 08:16 Dose: 6 mg Documented by: Dextrose/Water (50% Dextrose In Water 50 Ml Syringe) 50 ml IV Q15M PRN PRN Reason: Hypoglycemia Enoxaparin Sodium (Enoxaparin 40 Mg/0.4 Ml Syringe) 40 mg SUBCUT Q12HR [facility] Glucagon (Glucagon,Human Recombinant 1 Mg Vial) 1 mg IM Q15M PRN PRN Reason: Hypoglycemia Guaifenesin (Guaifenesin 100 Mg/5 Ml Soln 5 Ml Ud Cup) 100 mg PO Q6H PRN PRN Reason: Cough Remdesivir 100 mg/ Sodium (Chloride) 100 mls @ 100 mls/hr IV Q24H [facility] Stop: 09/16/20 09:59 Last Infusion: 09/14/20 10:44 Dose: Infused Documented by: Azithromycin 500 mg/ Sodium (Chloride) 250 mls @ 250 mls/hr IV Q24H [facility] Last Admin: 09/13/20 12:35 Dose: 250 mls/hr Documented by: Ceftriaxone Sodium 1 gm/ (Sodium Chloride) 50 mls @ 100 mls/hr IV Q24H [facility] Last Admin: 09/13/20 17:30 Dose: 100 mls/hr Documented by: Insulin Glargine (Insulin Glarg,Human.Rec.Analog 100 Unit/Ml) 30 unit SUBCUT DAILY [facility] Insulin Human Lispro (Insulin Lispro 100 Units/Ml 3 Ml Vial) 0 unit SUBCUT WITHMEALSANDBED [facility]; Protocol Last Admin: 09/14/20 08:49 Dose: 4 units Documented by: Sodium Chloride (Sodium Chloride 0.9% 10 Ml Syringe) 10 ml FLUSH ASDIRECTED PRN PRN Reason: Keep Vein Open Last Admin: 09/14/20 05:16 Dose: 10 ml Documented by: Discontinued Medications Albuterol/Ipratropium (Albuterol/Ipratropium 3.0-0.5 Mg/3 Ml Neb Soln) 3 ml NEB ONETIME ONE Stop: 09/12/20 08:41 Last Admin: 09/12/20 09:03 Dose: 3 ml Documented by: Dexamethasone (Dexamethasone 4 Mg/Ml Sdv) 6 mg IVPUSH ONETIME ONE Stop: 09/12/20 08:41 Last Admin: 09/12/20 09:02 Dose: 6 mg Documented by: Enoxaparin Sodium (Enoxaparin 100 Mg/1 Ml Syringe) 100 mg SUBCUT Q12HR [facility] Last Admin: 09/14/20 08:16 Dose: 100 mg Documented by: Azithromycin 500 mg/ Sodium (Chloride) 250 mls @ 250 mls/hr IV ONETIME ONE Stop: 09/12/20 09:39 Last Admin: 09/12/20 09:01 Dose: 250 mls/hr Documented by: Remdesivir 200 mg/ Sodium (Chloride) 250 mls @ 250 mls/hr IV ONETIME ONE Stop: 09/12/20 12:59 Last Admin: 09/12/20 12:18 Dose: 250 mls/hr Documented by: Vancomycin HCl 1,500 mg/ (Sodium Chloride) 500 mls @ 333.333 mls/hr IV Q8H [facility] Last Admin: 09/13/20 02:41 Dose: 333.333 mls/hr Documented by: Sterile Water (Sterile Water For Injection) Confirm Administered Dose 40 mls @ as directed .ROUTE .STK-MED ONE Stop: 09/13/20 02:22 Last Admin: 09/13/20 02:41 Dose: 0.1 mls/hr Documented by: Vancomycin HCl 1.5 gm/ Premix 300 mls @ 200 mls/hr IV Q8H [facility] Last Admin: 09/14/20 02:43 Dose: Not Given Documented by: Vancomycin HCl 2 gm/ Sodium (Chloride) 500 mls @ 250 mls/hr IV Q8H [facility] Last Admin: 09/14/20 02:29 Dose: 250 mls/hr Documented by: Vancomycin HCl 2 gm/ Sodium (Chloride) 500 mls @ 250 mls/hr IV Q8H [facility] Influenza Virus Vaccine (Pharmacy To Dose - Influenza Vaccine) 1 each IM DAILY [facility] Last Admin: 09/14/20 08:54 Dose: Not Given Documented by: Insulin Glargine (Insulin Glarg,Human.Rec.Analog 100 Unit/Ml) 15 unit SUBCUT DAILY [facility] Last Admin: 09/14/20 08:50 Dose: 15 units Documented by: Vancomycin HCl (Pharmacy To Dose - Vancomycin) 1 dose .XX ASDIRECTED [facility] - Exam Quality Assessment: Supplemental Oxygen General: Oriented, Cooperative, Mild Distress HEENT: EOMI Extremities: Normal Inspection Neurological: No New Focal Deficit Psy/Mental Status: Alert, Normal Affect - Patient Data Lab Results Last 24 hrs: Laboratory Results - last 24 hr 09/12/20 09/13/20 09/13/20 Range/Units 08:43 06:25 16:39 WBC (5.0-10.0) 10^3/uL RBC (4.6-6.2) 10^6/uL Hgb (14.0-18.0) g/dL Hct (40.0-54.0) % MCV (80-100) fL MCH (27.0-34.0) pg MCHC (33.0-35.0) g/dL Plt Count (150-450) 10^3/uL Neut % (Auto) (42.2-75.2) % Lymph % (Auto) (20.5-50.1) % [place] % (Auto) (2-8) % Eos % (Auto) (1.0-3.0) % Baso % (Auto) (0.0-1.0) % D-Dimer, Quantitative (0-400) ng/mL POC Glucose 324 H (70-105) mg/dl Ferritin (26-388) mg/mL Direct Bilirubin (0.0-0.2) mg/dL Procalcitonin 0.15 H 0.16 H ng/mL Vancomycin Trough (10.0-20.0) ug/mL 09/13/20 09/14/20 09/14/20 Range/Units 22:07 01:30 06:32 WBC 6.3 (5.0-10.0) 10^3/uL RBC 4.93 (4.6-6.2) 10^6/uL Hgb 13.1 L (14.0-18.0) g/dL Hct 39.3 L (40.0-54.0) % MCV 79.7 L (80-100) fL MCH 26.6 L (27.0-34.0) pg MCHC 33.3 (33.0-35.0) g/dL Plt Count 275 (150-450) 10^3/uL Neut % (Auto) 61.1 (42.2-75.2) % Lymph % (Auto) 29.2 (20.5-50.1) % [place] % (Auto) 9.3 H (2-8) % Eos % (Auto) 0.2 L (1.0-3.0) % Baso % (Auto) 0.2 (0.0-1.0) % D-Dimer, Quantitative (0-400) ng/mL POC Glucose 273 H (70-105) mg/dl Ferritin (26-388) mg/mL Direct Bilirubin (0.0-0.2) mg/dL Procalcitonin ng/mL Vancomycin Trough 7.6 L (10.0-20.0) ug/mL 09/14/20 09/14/20 09/14/20 Range/Units 06:32 06:32 06:32 WBC (5.0-10.0) 10^3/uL RBC (4.6-6.2) 10^6/uL Hgb (14.0-18.0) g/dL Hct (40.0-54.0) % MCV (80-100) fL MCH (27.0-34.0) pg MCHC (33.0-35.0) g/dL Plt Count (150-450) 10^3/uL Neut % (Auto) (42.2-75.2) % Lymph % (Auto) (20.5-50.1) % [place] % (Auto) (2-8) % Eos % (Auto) (1.0-3.0) % Baso % (Auto) (0.0-1.0) % D-Dimer, Quantitative 327 (0-400) ng/mL POC Glucose (70-105) mg/dl Ferritin 600 H (26-388) mg/mL Direct Bilirubin 0.1 (0.0-0.2) mg/dL Procalcitonin ng/mL Vancomycin Trough (10.0-20.0) ug/mL 09/14/20 09/14/20 Range/Units 08:14 11:03 WBC (5.0-10.0) 10^3/uL RBC (4.6-6.2) 10^6/uL Hgb (14.0-18.0) g/dL Hct (40.0-54.0) % MCV (80-100) fL MCH (27.0-34.0) pg MCHC (33.0-35.0) g/dL Plt Count (150-450) 10^3/uL Neut % (Auto) (42.2-75.2) % Lymph % (Auto) (20.5-50.1) % [place] % (Auto) (2-8) % Eos % (Auto) (1.0-3.0) % Baso % (Auto) (0.0-1.0) % D-Dimer, Quantitative (0-400) ng/mL POC Glucose 227 H 315 H (70-105) mg/dl Ferritin (26-388) mg/mL Direct Bilirubin (0.0-0.2) mg/dL Procalcitonin ng/mL Vancomycin Trough (10.0-20.0) ug/mL Result Diagrams: 09/14/20 06:32 09/12/20 08:43 Yao Results Last 24 hrs: Microbiology 09/12/20 09:13 Aerobic Blood Culture - Preliminary Blood - Venous - Iv Start NO GROWTH AFTER 2 DAYS Anaerobic Blood Culture - Preliminary NO GROWTH AFTER 2 DAYS 09/12/20 17:32 MRSA Clearance Screen - Final Nose, Unspecified NO MRSA ISOLATED Sepsis Event Note - Evaluation Sepsis Screening Result: No Definite Risk - Focused Exam Vital Signs: Vital Signs Temp Pulse Resp BP BP Pulse Ox 09/14/20 08:00 97.3 F 78 22 H 134/68 92 L 09/14/20 05:00 97.4 F 74 28 H 117/77 91 L - Problem List Review Problem List Initiated/Reviewed/Updated: Yes - My Orders Last 24 Hours: My Active Orders 09/13/20 13:00 Azithromycin [Zithromax] 500 mg Sodium Chloride 0.9% [Normal Saline (AdvBag)] 250 ml IV Q24H 09/13/20 17:58 IS (RT) [RT Incentive Spirometry] [RC] ASDIRECTED 09/14/20 06:32 PROCALCITONIN [REF] DAILY 09/14/20 07:00 BLOOD GAS ARTERIAL [BG] DAILY 09/14/20 12:00 Insulin Glarg,Human.Rec.Analog [LantUS] 30 unit SUBCUT DAILY 09/14/20 21:00 Enoxaparin [Lovenox] 40 mg SUBCUT Q12HR 09/15/20 05:00 BMP [BASIC METABOLIC PANEL,BMP] [CHEM] Routine CBC WITH AUTO DIFF [HEME] DAILY D-DIMER QUANTITATIVE [COAG] DAILY PROCALCITONIN [REF] DAILY 09/15/20 11:15 BILIRUBIN DIRECT [CHEM] DAILY 09/16/20 05:00 CBC WITH AUTO DIFF [HEME] DAILY D-DIMER QUANTITATIVE [COAG] DAILY PROCALCITONIN [REF] DAILY 09/16/20 11:15 BILIRUBIN DIRECT [CHEM] DAILY 09/16/20 12:00 PROCALCITONIN [REF] DAILY 09/17/20 05:00 CBC WITH AUTO DIFF [HEME] DAILY D-DIMER QUANTITATIVE [COAG] DAILY PROCALCITONIN [REF] DAILY 09/18/20 05:00 CBC WITH AUTO DIFF [HEME] DAILY D-DIMER QUANTITATIVE [COAG] DAILY PROCALCITONIN [REF] DAILY 09/19/20 05:00 CBC WITH AUTO DIFF [HEME] DAILY D-DIMER QUANTITATIVE [COAG] DAILY PROCALCITONIN [REF] DAILY 09/20/20 05:00 CBC WITH AUTO DIFF [HEME] DAILY D-DIMER QUANTITATIVE [COAG] DAILY PROCALCITONIN [REF] DAILY 09/21/20 05:00 CBC WITH AUTO DIFF [HEME] DAILY D-DIMER QUANTITATIVE [COAG] DAILY PROCALCITONIN [REF] DAILY 09/22/20 05:00 CBC WITH AUTO DIFF [HEME] DAILY D-DIMER QUANTITATIVE [COAG] DAILY PROCALCITONIN [REF] DAILY - Plan Plan:: Pt sent from [facility] with c/o dyspnea and found in clinic to be with oxygen saturation of 77% on RA with labored breathing. Patient states he became ill on 09/03/20, came to the ER on 09/05/20 and was COVID positive. He reports generalized body aches, loss of appetite, nausea, dry cough, and shortness of breath. Denies Hx of DM, asthma, or any other chronic diseases. Pt was admitted for Pneumonia due to COVID-19 virus, Acute respiratory failure due to COVID-19, Hyperglycemia High flow O2: O2 seems mildly improved Convalescent COVID-19 [place]: ( September 12) Remdesivir: ( stared September 12) Risks and benefits discussed. Pt would like to proceed. Methylpred ( stared September 12) Vit D and VIt C Enoxaparin: decrease to 40 mg daily instruction for proning portioning inflammatory markers Vanoc : DC since neg MRSA screen Continue with Zithromax and Ceftriaxone : Awaiting Procal DM : increase Lantus Insulin sliding scale Dietitian
[2020-09-14] MEDS: Azithromycin 500 MG in Sodium Chloride 0.9% 250 ML IV SCH (12:22)
[2020-09-14] MEDS: cefTRIAXone 1 GM in Sodium Chloride 0.9% 50 ML IV SCH (17:18)
[2020-09-14] MEDS ORDERED: Enoxaparin 40 MG/0.4 ML Syringe SUBCUT SCH (21:00)
[2020-09-15 06:58] LABS: CHLORIDE,CL 106 mmol/L (98-107); SODIUM,NA 144 mmol/L (136-145)
[2020-09-15] MEDS: Insulin Glarg,Human.Rec.Analog 100 Unit/ML SUBCUT SCH (08:51)
[2020-09-15] MEDS: Insulin Lispro 100 Units/ML 3 ML Vial SUBCUT SCH ×4 (08:52→22:05)
[2020-09-15] MEDS: Enoxaparin 40 MG/0.4 ML Syringe SUBCUT SCH (08:59)
[2020-09-15] MEDS: Ascorbic Acid 500 MG Tab PO SCH (08:59)
[2020-09-15] MEDS: Cholecalciferol (Vitamin D3) 25 MCG Tab PO SCH (09:00)
[2020-09-15] MEDS: Dexamethasone 4 MG/ML SDV IVPUSH SCH (09:11)
[2020-09-15] MEDS: REMDESIVIR 100 MG in Sodium Chloride 0.9% 100 ML IV SCH (09:12)
--- NOTE | 2020-09-15 10:35 | PCM.PN ---
- General Info Date of Service: 09/15/20 Subjective Update: feeling about 70% better - Review of Systems General: Denies: Fever Pulmonary: Reports: Shortness of Breath (improving ) Cardiovascular: Denies: Chest Pain Gastrointestinal: Denies: Abdominal Pain Neurological: Denies: Confusion Psychiatric: Denies: Confusion - Patient Data Vitals - Most Recent: Last Vital Signs Temp 98 F 09/15/20 04:00 Pulse 77 09/15/20 04:00 Resp 20 09/15/20 04:00 BP 108/54 L 09/15/20 04:00 Pulse Ox 93 L 09/15/20 04:00 Weight - Most Recent: 253 lb 9.6 oz I&O - Last 24 Hours: Intake & Output 09/14/20 09/15/20 09/15/20 22:59 06:59 14:59 Intake Total 750 200 Balance 750 200 Lab Results Last 24 Hours: Laboratory Results - last 24 hr 09/14/20 09/14/20 09/14/20 Range/Units 06:32 11:03 17:24 WBC (5.0-10.0) 10^3/uL RBC (4.6-6.2) 10^6/uL Hgb (14.0-18.0) g/dL Hct (40.0-54.0) % MCV (80-100) fL MCH (27.0-34.0) pg MCHC (33.0-35.0) g/dL Plt Count (150-450) 10^3/uL Neut % (Auto) (42.2-75.2) % Lymph % (Auto) (20.5-50.1) % [place] % (Auto) (2-8) % Eos % (Auto) (1.0-3.0) % Baso % (Auto) (0.0-1.0) % D-Dimer, Quantitative (0-400) ng/mL Sodium (136-145) mmol/L Potassium (3.5-5.1) mmol/L Chloride (98-107) mmol/L Carbon Dioxide (21-32) mmol/L Anion Gap (7-13) mEq/L BUN (7-18) mg/dL Creatinine (0.70-1.30) mg/dL Est Cr Clr Drug Dosing mL/min Estimated GFR (MDRD) Glucose (70-99) mg/dL POC Glucose 315 H 311 H (70-105) mg/dl Calcium (8.5-10.1) mg/dL Direct Bilirubin (0.0-0.2) mg/dL Procalcitonin 0.14 H ng/mL 09/14/20 09/15/20 09/15/20 Range/Units 21:49 06:25 06:25 WBC 6.5 (5.0-10.0) 10^3/uL RBC 5.03 (4.6-6.2) 10^6/uL Hgb 13.4 L (14.0-18.0) g/dL Hct 40.0 (40.0-54.0) % MCV 79.5 L (80-100) fL MCH 26.6 L (27.0-34.0) pg MCHC 33.5 (33.0-35.0) g/dL Plt Count 287 (150-450) 10^3/uL Neut % (Auto) 62.9 (42.2-75.2) % Lymph % (Auto) 26.1 (20.5-50.1) % [place] % (Auto) 9.9 H (2-8) % Eos % (Auto) 0.8 L (1.0-3.0) % Baso % (Auto) 0.3 (0.0-1.0) % D-Dimer, Quantitative 237 (0-400) ng/mL Sodium (136-145) mmol/L Potassium (3.5-5.1) mmol/L Chloride (98-107) mmol/L Carbon Dioxide (21-32) mmol/L Anion Gap (7-13) mEq/L BUN (7-18) mg/dL Creatinine (0.70-1.30) mg/dL Est Cr Clr Drug Dosing mL/min Estimated GFR (MDRD) Glucose (70-99) mg/dL POC Glucose 303 H (70-105) mg/dl Calcium (8.5-10.1) mg/dL Direct Bilirubin (0.0-0.2) mg/dL Procalcitonin ng/mL 09/15/20 09/15/20 09/15/20 Range/Units 06:25 06:25 08:43 WBC (5.0-10.0) 10^3/uL RBC (4.6-6.2) 10^6/uL Hgb (14.0-18.0) g/dL Hct (40.0-54.0) % MCV (80-100) fL MCH (27.0-34.0) pg MCHC (33.0-35.0) g/dL Plt Count (150-450) 10^3/uL Neut % (Auto) (42.2-75.2) % Lymph % (Auto) (20.5-50.1) % [place] % (Auto) (2-8) % Eos % (Auto) (1.0-3.0) % Baso % (Auto) (0.0-1.0) % D-Dimer, Quantitative (0-400) ng/mL Sodium 144 (136-145) mmol/L Potassium 3.0 L (3.5-5.1) mmol/L Chloride 106 (98-107) mmol/L Carbon Dioxide 29 (21-32) mmol/L Anion Gap 12.0 (7-13) mEq/L BUN 11 (7-18) mg/dL Creatinine 0.63 L (0.70-1.30) mg/dL Est Cr Clr Drug Dosing 195.03 mL/min Estimated GFR (MDRD) > 60 Glucose 180 H (70-99) mg/dL POC Glucose 212 H (70-105) mg/dl Calcium 8.1 L (8.5-10.1) mg/dL Direct Bilirubin 0.1 (0.0-0.2) mg/dL Procalcitonin ng/mL Yao Results Last 24 Hours: Microbiology 09/12/20 09:13 Aerobic Blood Culture - Preliminary Blood - Venous - Iv Start NO GROWTH AFTER 3 DAYS Anaerobic Blood Culture - Preliminary NO GROWTH AFTER 3 DAYS 09/12/20 17:32 MRSA Clearance Screen - Final Nose, Unspecified NO MRSA ISOLATED Med Orders - Current: Current Medications Acetaminophen (Acetaminophen 325 Mg Tab) 650 mg PO Q4H PRN PRN Reason: Fever Greater Than 101 Ascorbic Acid (Ascorbic Acid 500 Mg Tab) 500 mg PO DAILY [facility] Last Admin: 09/15/20 08:59 Dose: 500 mg Documented by: Cholecalciferol (Cholecalciferol (Vitamin D3) 25 Mcg Tab) 25 mcg PO DAILY [facility] Last Admin: 09/15/20 09:00 Dose: 25 mcg Documented by: Dexamethasone (Dexamethasone 4 Mg/Ml Sdv) 6 mg IVPUSH DAILY [facility] Stop: 09/22/20 09:01 Last Admin: 09/15/20 09:11 Dose: 6 mg Documented by: Dextrose/Water (50% Dextrose In Water 50 Ml Syringe) 50 ml IV Q15M PRN PRN Reason: Hypoglycemia Enoxaparin Sodium (Enoxaparin 40 Mg/0.4 Ml Syringe) 40 mg SUBCUT DAILY [facility] Last Admin: 09/15/20 08:59 Dose: 40 mg Documented by: Glucagon (Glucagon,Human Recombinant 1 Mg Vial) 1 mg IM Q15M PRN PRN Reason: Hypoglycemia Guaifenesin (Guaifenesin 100 Mg/5 Ml Soln 5 Ml Ud Cup) 100 mg PO Q6H PRN PRN Reason: Cough Remdesivir 100 mg/ Sodium (Chloride) 100 mls @ 100 mls/hr IV Q24H [facility] Stop: 09/16/20 09:59 Last Admin: 09/15/20 09:12 Dose: 100 mls/hr Documented by: Azithromycin 500 mg/ Sodium (Chloride) 250 mls @ 250 mls/hr IV Q24H [facility] Last Infusion: 09/14/20 15:03 Dose: Infused Documented by: Ceftriaxone Sodium 1 gm/ (Sodium Chloride) 50 mls @ 100 mls/hr IV Q24H [facility] Last Admin: 09/14/20 17:18 Dose: 100 mls/hr Documented by: Insulin Glargine (Insulin Glarg,Human.Rec.Analog 100 Unit/Ml) 30 unit SUBCUT DAILY [facility] Last Admin: 09/15/20 08:51 Dose: 30 units Documented by: Insulin Human Lispro (Insulin Lispro 100 Units/Ml 3 Ml Vial) 0 unit SUBCUT WITHMEALSANDBED [facility]; Protocol Last Admin: 09/15/20 08:52 Dose: 4 units Documented by: Sodium Chloride (Sodium Chloride 0.9% 10 Ml Syringe) 10 ml FLUSH ASDIRECTED PRN PRN Reason: Keep Vein Open Last Admin: 09/14/20 22:00 Dose: 10 ml Documented by: Discontinued Medications Albuterol/Ipratropium (Albuterol/Ipratropium 3.0-0.5 Mg/3 Ml Neb Soln) 3 ml NEB ONETIME ONE Stop: 09/12/20 08:41 Last Admin: 09/12/20 09:03 Dose: 3 ml Documented by: Dexamethasone (Dexamethasone 4 Mg/Ml Sdv) 6 mg IVPUSH ONETIME ONE Stop: 09/12/20 08:41 Last Admin: 09/12/20 09:02 Dose: 6 mg Documented by: Enoxaparin Sodium (Enoxaparin 100 Mg/1 Ml Syringe) 100 mg SUBCUT Q12HR [facility] Last Admin: 09/14/20 08:16 Dose: 100 mg Documented by: Enoxaparin Sodium (Enoxaparin 40 Mg/0.4 Ml Syringe) 40 mg SUBCUT Q12HR [facility] Azithromycin 500 mg/ Sodium (Chloride) 250 mls @ 250 mls/hr IV ONETIME ONE Stop: 09/12/20 09:39 Last Admin: 09/12/20 09:01 Dose: 250 mls/hr Documented by: Remdesivir 200 mg/ Sodium (Chloride) 250 mls @ 250 mls/hr IV ONETIME ONE Stop: 09/12/20 12:59 Last Admin: 09/12/20 12:18 Dose: 250 mls/hr Documented by: Vancomycin HCl 1,500 mg/ (Sodium Chloride) 500 mls @ 333.333 mls/hr IV Q8H [facility] Last Admin: 09/13/20 02:41 Dose: 333.333 mls/hr Documented by: Sterile Water (Sterile Water For Injection) Confirm Administered Dose 40 mls @ as directed .ROUTE .STK-MED ONE Stop: 09/13/20 02:22 Last Admin: 09/13/20 02:41 Dose: 0.1 mls/hr Documented by: Vancomycin HCl 1.5 gm/ Premix 300 mls @ 200 mls/hr IV Q8H [facility] Last Admin: 09/14/20 02:43 Dose: Not Given Documented by: Vancomycin HCl 2 gm/ Sodium (Chloride) 500 mls @ 250 mls/hr IV Q8H [facility] Last Admin: 09/14/20 02:29 Dose: 250 mls/hr Documented by: Vancomycin HCl 2 gm/ Sodium (Chloride) 500 mls @ 250 mls/hr IV Q8H [facility] Last Admin: 09/14/20 17:52 Dose: Not Given Documented by: Influenza Virus Vaccine (Pharmacy To Dose - Influenza Vaccine) 1 each IM DAILY [facility] Last Admin: 09/14/20 08:54 Dose: Not Given Documented by: Insulin Glargine (Insulin Glarg,Human.Rec.Analog 100 Unit/Ml) 15 unit SUBCUT DAILY [facility] Last Admin: 09/14/20 08:50 Dose: 15 units Documented by: Vancomycin HCl (Pharmacy To Dose - Vancomycin) 1 dose .XX ASDIRECTED [facility] - Exam Quality Assessment: Supplemental Oxygen General: Alert, Oriented Extremities: Normal Range of Motion Skin: Intact Neurological: No New Focal Deficit Psy/Mental Status: Alert, Normal Affect - Patient Data Lab Results Last 24 hrs: Laboratory Results - last 24 hr 09/14/20 09/14/20 09/14/20 Range/Units 06:32 11:03 17:24 WBC (5.0-10.0) 10^3/uL RBC (4.6-6.2) 10^6/uL Hgb (14.0-18.0) g/dL Hct (40.0-54.0) % MCV (80-100) fL MCH (27.0-34.0) pg MCHC (33.0-35.0) g/dL Plt Count (150-450) 10^3/uL Neut % (Auto) (42.2-75.2) % Lymph % (Auto) (20.5-50.1) % [place] % (Auto) (2-8) % Eos % (Auto) (1.0-3.0) % Baso % (Auto) (0.0-1.0) % D-Dimer, Quantitative (0-400) ng/mL Sodium (136-145) mmol/L Potassium (3.5-5.1) mmol/L Chloride (98-107) mmol/L Carbon Dioxide (21-32) mmol/L Anion Gap (7-13) mEq/L BUN (7-18) mg/dL Creatinine (0.70-1.30) mg/dL Est Cr Clr Drug Dosing mL/min Estimated GFR (MDRD) Glucose (70-99) mg/dL POC Glucose 315 H 311 H (70-105) mg/dl Calcium (8.5-10.1) mg/dL Direct Bilirubin (0.0-0.2) mg/dL Procalcitonin 0.14 H ng/mL 09/14/20 09/15/20 09/15/20 Range/Units 21:49 06:25 06:25 WBC 6.5 (5.0-10.0) 10^3/uL RBC 5.03 (4.6-6.2) 10^6/uL Hgb 13.4 L (14.0-18.0) g/dL Hct 40.0 (40.0-54.0) % MCV 79.5 L (80-100) fL MCH 26.6 L (27.0-34.0) pg MCHC 33.5 (33.0-35.0) g/dL Plt Count 287 (150-450) 10^3/uL Neut % (Auto) 62.9 (42.2-75.2) % Lymph % (Auto) 26.1 (20.5-50.1) % [place] % (Auto) 9.9 H (2-8) % Eos % (Auto) 0.8 L (1.0-3.0) % Baso % (Auto) 0.3 (0.0-1.0) % D-Dimer, Quantitative 237 (0-400) ng/mL Sodium (136-145) mmol/L Potassium (3.5-5.1) mmol/L Chloride (98-107) mmol/L Carbon Dioxide (21-32) mmol/L Anion Gap (7-13) mEq/L BUN (7-18) mg/dL Creatinine (0.70-1.30) mg/dL Est Cr Clr Drug Dosing mL/min Estimated GFR (MDRD) Glucose (70-99) mg/dL POC Glucose 303 H (70-105) mg/dl Calcium (8.5-10.1) mg/dL Direct Bilirubin (0.0-0.2) mg/dL Procalcitonin ng/mL 09/15/20 09/15/20 09/15/20 Range/Units 06:25 06:25 08:43 WBC (5.0-10.0) 10^3/uL RBC (4.6-6.2) 10^6/uL Hgb (14.0-18.0) g/dL Hct (40.0-54.0) % MCV (80-100) fL MCH (27.0-34.0) pg MCHC (33.0-35.0) g/dL Plt Count (150-450) 10^3/uL Neut % (Auto) (42.2-75.2) % Lymph % (Auto) (20.5-50.1) % [place] % (Auto) (2-8) % Eos % (Auto) (1.0-3.0) % Baso % (Auto) (0.0-1.0) % D-Dimer, Quantitative (0-400) ng/mL Sodium 144 (136-145) mmol/L Potassium 3.0 L (3.5-5.1) mmol/L Chloride 106 (98-107) mmol/L Carbon Dioxide 29 (21-32) mmol/L Anion Gap 12.0 (7-13) mEq/L BUN 11 (7-18) mg/dL Creatinine 0.63 L (0.70-1.30) mg/dL Est Cr Clr Drug Dosing 195.03 mL/min Estimated GFR (MDRD) > 60 Glucose 180 H (70-99) mg/dL POC Glucose 212 H (70-105) mg/dl Calcium 8.1 L (8.5-10.1) mg/dL Direct Bilirubin 0.1 (0.0-0.2) mg/dL Procalcitonin ng/mL Result Diagrams: 09/15/20 06:25 09/15/20 06:25 Yao Results Last 24 hrs: Microbiology 09/12/20 09:13 Aerobic Blood Culture - Preliminary Blood - Venous - Iv Start NO GROWTH AFTER 3 DAYS Anaerobic Blood Culture - Preliminary NO GROWTH AFTER 3 DAYS 09/12/20 17:32 MRSA Clearance Screen - Final Nose, Unspecified NO MRSA ISOLATED Sepsis Event Note - Evaluation Sepsis Screening Result: No Definite Risk - Focused Exam Vital Signs: Vital Signs Temp Pulse Resp BP Pulse Ox 09/15/20 04:00 98 F 77 20 108/54 L 93 L 09/15/20 01:09 98.8 F 73 24 H 96/53 L 95 09/15/20 00:55 88 L - Problem List Review Problem List Initiated/Reviewed/Updated: Yes - My Orders Last 24 Hours: My Active Orders 09/14/20 12:00 Insulin Glarg,Human.Rec.Analog [LantUS] 30 unit SUBCUT DAILY 09/15/20 06:25 PROCALCITONIN [REF] DAILY 09/15/20 09:00 Enoxaparin [Lovenox] 40 mg SUBCUT DAILY 09/16/20 05:00 CBC WITH AUTO DIFF [HEME] DAILY D-DIMER QUANTITATIVE [COAG] DAILY PROCALCITONIN [REF] DAILY 09/16/20 11:15 BILIRUBIN DIRECT [CHEM] DAILY 09/16/20 12:00 PROCALCITONIN [REF] DAILY 09/17/20 05:00 CBC WITH AUTO DIFF [HEME] DAILY D-DIMER QUANTITATIVE [COAG] DAILY PROCALCITONIN [REF] DAILY 09/18/20 05:00 CBC WITH AUTO DIFF [HEME] DAILY D-DIMER QUANTITATIVE [COAG] DAILY PROCALCITONIN [REF] DAILY 09/19/20 05:00 CBC WITH AUTO DIFF [HEME] DAILY D-DIMER QUANTITATIVE [COAG] DAILY PROCALCITONIN [REF] DAILY 09/20/20 05:00 CBC WITH AUTO DIFF [HEME] DAILY D-DIMER QUANTITATIVE [COAG] DAILY PROCALCITONIN [REF] DAILY 09/21/20 05:00 CBC WITH AUTO DIFF [HEME] DAILY D-DIMER QUANTITATIVE [COAG] DAILY PROCALCITONIN [REF] DAILY 09/22/20 05:00 CBC WITH AUTO DIFF [HEME] DAILY D-DIMER QUANTITATIVE [COAG] DAILY PROCALCITONIN [REF] DAILY - Plan Plan:: Pt sent from [facility] with c/o dyspnea and found in clinic to be with oxygen saturation of 77% on RA with labored breathing. Patient states he became ill on 09/03/20, came to the ER on 09/05/20 and was COVID positive. He reports generalized body aches, loss of appetite, nausea, dry cough, and shortness of breath. Denies Hx of DM, asthma, or any other chronic diseases. Pt was admitted for Pneumonia due to COVID-19 virus, Acute respiratory failure due to COVID-19, Hyperglycemia High flow O2: O2 improving [facility]escent COVID-19 [place]: ( September 12) Remdesivir: ( stared September 12) Risks and benefits discussed. Pt would like to proceed. Methylpred ( stared September 12) Vit D and VIt C Enoxaparin: decrease to 40 mg daily instruction for proning portioning inflammatory markers: getting better Vanoc : DC since neg MRSA screen Continue with Zithromax and Ceftriaxone : Procal gradualy improved. DC Zithromax. DM : increase Lantus Insulin sliding scale Dietitian
[2020-09-15] MEDS: cefTRIAXone 1 GM in Sodium Chloride 0.9% 50 ML IV SCH (17:15)
[2020-09-15] MEDS: Sodium Chloride 0.9% 10 ML Syringe FLUSH PRN ×2 (22:05→22:07)
[2020-09-16] MEDS: Insulin Lispro 100 Units/ML 3 ML Vial SUBCUT SCH ×4 (08:17→21:45)
[2020-09-16] MEDS: Insulin Glarg,Human.Rec.Analog 100 Unit/ML SUBCUT SCH (08:18)
[2020-09-16] MEDS: Cholecalciferol (Vitamin D3) 25 MCG Tab PO SCH (08:24)
[2020-09-16] MEDS: Ascorbic Acid 500 MG Tab PO SCH (08:24)
[2020-09-16] MEDS: Enoxaparin 40 MG/0.4 ML Syringe SUBCUT SCH (08:24)
[2020-09-16] MEDS: Dexamethasone 4 MG/ML SDV IVPUSH SCH (08:25)
[2020-09-16] MEDS: REMDESIVIR 100 MG in Sodium Chloride 0.9% 100 ML IV SCH (08:26)
--- NOTE | 2020-09-16 11:10 | PCM.PN ---
- General Info Date of Service: 09/16/20 Functional Status: Reports: Tolerating Diet. Denies: Pain Controlled - Review of Systems General: Denies: Fever Pulmonary: Reports: Shortness of Breath (imroved) Cardiovascular: Denies: Chest Pain Gastrointestinal: Denies: Abdominal Pain Neurological: Denies: Confusion Psychiatric: Denies: Confusion - Patient Data Vitals - Most Recent: Last Vital Signs Temp 97.1 F 09/16/20 04:58 Pulse 69 09/16/20 04:58 Resp 20 09/16/20 04:58 BP 105/51 L 09/16/20 04:58 Pulse Ox 92 L 09/16/20 04:58 Weight - Most Recent: 253 lb 9.6 oz I&O - Last 24 Hours: Intake & Output 09/15/20 09/16/20 09/16/20 22:59 06:59 14:59 Intake Total 1026 350 Balance 1026 350 Lab Results Last 24 Hours: Laboratory Results - last 24 hr 09/15/20 09/15/20 09/15/20 Range/Units 12:34 17:10 22:01 WBC (5.0-10.0) 10^3/uL RBC (4.6-6.2) 10^6/uL Hgb (14.0-18.0) g/dL Hct (40.0-54.0) % MCV (80-100) fL MCH (27.0-34.0) pg MCHC (33.0-35.0) g/dL Plt Count (150-450) 10^3/uL Neut % (Auto) (42.2-75.2) % Lymph % (Auto) (20.5-50.1) % [place] % (Auto) (2-8) % Eos % (Auto) (1.0-3.0) % Baso % (Auto) (0.0-1.0) % Add Manual Diff D-Dimer, Quantitative (0-400) ng/mL POC Glucose 302 H 304 H 277 H (70-105) mg/dl Direct Bilirubin (0.0-0.2) mg/dL 09/16/20 09/16/20 09/16/20 Range/Units 06:08 06:08 06:08 WBC 6.4 (5.0-10.0) 10^3/uL RBC 5.16 (4.6-6.2) 10^6/uL Hgb 13.6 L (14.0-18.0) g/dL Hct 41.1 (40.0-54.0) % MCV 79.7 L (80-100) fL MCH 26.4 L (27.0-34.0) pg MCHC 33.1 (33.0-35.0) g/dL Plt Count 265 (150-450) 10^3/uL Neut % (Auto) 56.8 (42.2-75.2) % Lymph % (Auto) 30.2 (20.5-50.1) % [place] % (Auto) 11.0 H (2-8) % Eos % (Auto) 2.0 (1.0-3.0) % Baso % (Auto) 0.0 (0.0-1.0) % Add Manual Diff D-Dimer, Quantitative 117 (0-400) ng/mL POC Glucose (70-105) mg/dl Direct Bilirubin 0.1 (0.0-0.2) mg/dL 09/16/20 Range/Units 08:16 WBC (5.0-10.0) 10^3/uL RBC (4.6-6.2) 10^6/uL Hgb (14.0-18.0) g/dL Hct (40.0-54.0) % MCV (80-100) fL MCH (27.0-34.0) pg MCHC (33.0-35.0) g/dL Plt Count (150-450) 10^3/uL Neut % (Auto) (42.2-75.2) % Lymph % (Auto) (20.5-50.1) % [place] % (Auto) (2-8) % Eos % (Auto) (1.0-3.0) % Baso % (Auto) (0.0-1.0) % Add Manual Diff D-Dimer, Quantitative (0-400) ng/mL POC Glucose 225 H (70-105) mg/dl Direct Bilirubin (0.0-0.2) mg/dL Yao Results Last 24 Hours: Microbiology 09/12/20 09:13 Aerobic Blood Culture - Preliminary Blood - Venous - Iv Start NO GROWTH AFTER 4 DAYS Anaerobic Blood Culture - Preliminary NO GROWTH AFTER 4 DAYS Med Orders - Current: Current Medications Acetaminophen (Acetaminophen 325 Mg Tab) 650 mg PO Q4H PRN PRN Reason: Fever Greater Than 101 Ascorbic Acid (Ascorbic Acid 500 Mg Tab) 500 mg PO DAILY [facility] Last Admin: 09/16/20 08:24 Dose: 500 mg Documented by: Cholecalciferol (Cholecalciferol (Vitamin D3) 25 Mcg Tab) 25 mcg PO DAILY [facility] Last Admin: 09/16/20 08:24 Dose: 25 mcg Documented by: Dexamethasone (Dexamethasone 4 Mg/Ml Sdv) 6 mg IVPUSH DAILY [facility] Stop: 09/22/20 09:01 Last Admin: 09/16/20 08:25 Dose: 6 mg Documented by: Dextrose/Water (50% Dextrose In Water 50 Ml Syringe) 50 ml IV Q15M PRN PRN Reason: Hypoglycemia Enoxaparin Sodium (Enoxaparin 40 Mg/0.4 Ml Syringe) 40 mg SUBCUT DAILY [facility] Last Admin: 09/16/20 08:24 Dose: 40 mg Documented by: Glucagon (Glucagon,Human Recombinant 1 Mg Vial) 1 mg IM Q15M PRN PRN Reason: Hypoglycemia Guaifenesin (Guaifenesin 100 Mg/5 Ml Soln 5 Ml Ud Cup) 100 mg PO Q6H PRN PRN Reason: Cough Ceftriaxone Sodium 1 gm/ (Sodium Chloride) 50 mls @ 100 mls/hr IV Q24H [facility] Last Admin: 09/15/20 17:15 Dose: 100 mls/hr Documented by: Insulin Glargine (Insulin Glarg,Human.Rec.Analog 100 Unit/Ml) 30 unit SUBCUT DAILY [facility] Last Admin: 09/16/20 08:18 Dose: 30 units Documented by: Insulin Human Lispro (Insulin Lispro 100 Units/Ml 3 Ml Vial) 0 unit SUBCUT WITH[facility]ALSANDBED [facility]; Protocol Last Admin: 09/16/20 08:17 Dose: 4 units Documented by: Sodium Chloride (Sodium Chloride 0.9% 10 Ml Syringe) 10 ml FLUSH ASDIRECTED PRN PRN Reason: Keep Vein Open Last Admin: 09/15/20 22:07 Dose: 10 ml Documented by: Discontinued Medications Albuterol/Ipratropium (Albuterol/Ipratropium 3.0-0.5 Mg/3 Ml Neb Soln) 3 ml NEB ONETIME ONE Stop: 09/12/20 08:41 Last Admin: 09/12/20 09:03 Dose: 3 ml Documented by: Dexamethasone (Dexamethasone 4 Mg/Ml Sdv) 6 mg IVPUSH ONETIME ONE Stop: 09/12/20 08:41 Last Admin: 09/12/20 09:02 Dose: 6 mg Documented by: Enoxaparin Sodium (Enoxaparin 100 Mg/1 Ml Syringe) 100 mg SUBCUT Q12HR [facility] Last Admin: 09/14/20 08:16 Dose: 100 mg Documented by: Enoxaparin Sodium (Enoxaparin 40 Mg/0.4 Ml Syringe) 40 mg SUBCUT Q12HR [facility] Azithromycin 500 mg/ Sodium (Chloride) 250 mls @ 250 mls/hr IV ONETIME ONE Stop: 09/12/20 09:39 Last Admin: 09/12/20 09:01 Dose: 250 mls/hr Documented by: Remdesivir 200 mg/ Sodium (Chloride) 250 mls @ 250 mls/hr IV ONETIME ONE Stop: 09/12/20 12:59 Last Admin: 09/12/20 12:18 Dose: 250 mls/hr Documented by: Remdesivir 100 mg/ Sodium (Chloride) 100 mls @ 100 mls/hr IV Q24H [facility] Stop: 09/16/20 09:59 Last Admin: 09/16/20 08:26 Dose: 100 mls/hr Documented by: Azithromycin 500 mg/ Sodium (Chloride) 250 mls @ 250 mls/hr IV Q24H [facility] Last Infusion: 09/14/20 15:03 Dose: Infused Documented by: Vancomycin HCl 1,500 mg/ (Sodium Chloride) 500 mls @ 333.333 mls/hr IV Q8H [facility] Last Admin: 09/13/20 02:41 Dose: 333.333 mls/hr Documented by: Sterile Water (Sterile Water For Injection) Confirm Administered Dose 40 mls @ as directed .ROUTE .STK-MED ONE Stop: 09/13/20 02:22 Last Admin: 09/13/20 02:41 Dose: 0.1 mls/hr Documented by: Vancomycin HCl 1.5 gm/ Premix 300 mls @ 200 mls/hr IV Q8H [facility] Last Admin: 09/14/20 02:43 Dose: Not Given Documented by: Vancomycin HCl 2 gm/ Sodium (Chloride) 500 mls @ 250 mls/hr IV Q8H [facility] Last Admin: 09/14/20 02:29 Dose: 250 mls/hr Documented by: Vancomycin HCl 2 gm/ Sodium (Chloride) 500 mls @ 250 mls/hr IV Q8H [facility] Last Admin: 09/14/20 17:52 Dose: Not Given Documented by: Influenza Virus Vaccine (Pharmacy To Dose - Influenza Vaccine) 1 each IM DAILY [facility] Last Admin: 09/14/20 08:54 Dose: Not Given Documented by: Insulin Glargine (Insulin Glarg,Human.Rec.Analog 100 Unit/Ml) 15 unit SUBCUT DAILY [facility] Last Admin: 09/14/20 08:50 Dose: 15 units Documented by: Vancomycin HCl (Pharmacy To Dose - Vancomycin) 1 dose .XX ASDIRECTED [facility] DANIEL - Exam Quality Assessment: Supplemental Oxygen General: Oriented, Cooperative HEENT: EOMI Extremities: Normal Inspection Skin: Intact Neurological: No New Focal Deficit Psy/Mental Status: Normal Affect - Patient Data Lab Results Last 24 hrs: Laboratory Results - last 24 hr 09/15/20 09/15/20 09/15/20 Range/Units 12:34 17:10 22:01 WBC (5.0-10.0) 10^3/uL RBC (4.6-6.2) 10^6/uL Hgb (14.0-18.0) g/dL Hct (40.0-54.0) % MCV (80-100) fL MCH (27.0-34.0) pg MCHC (33.0-35.0) g/dL Plt Count (150-450) 10^3/uL Neut % (Auto) (42.2-75.2) % Lymph % (Auto) (20.5-50.1) % [place] % (Auto) (2-8) % Eos % (Auto) (1.0-3.0) % Baso % (Auto) (0.0-1.0) % Add Manual Diff D-Dimer, Quantitative (0-400) ng/mL POC Glucose 302 H 304 H 277 H (70-105) mg/dl Direct Bilirubin (0.0-0.2) mg/dL 09/16/20 09/16/20 09/16/20 Range/Units 06:08 06:08 06:08 WBC 6.4 (5.0-10.0) 10^3/uL RBC 5.16 (4.6-6.2) 10^6/uL Hgb 13.6 L (14.0-18.0) g/dL Hct 41.1 (40.0-54.0) % MCV 79.7 L (80-100) fL MCH 26.4 L (27.0-34.0) pg MCHC 33.1 (33.0-35.0) g/dL Plt Count 265 (150-450) 10^3/uL Neut % (Auto) 56.8 (42.2-75.2) % Lymph % (Auto) 30.2 (20.5-50.1) % [place] % (Auto) 11.0 H (2-8) % Eos % (Auto) 2.0 (1.0-3.0) % Baso % (Auto) 0.0 (0.0-1.0) % Add Manual Diff D-Dimer, Quantitative 117 (0-400) ng/mL POC Glucose (70-105) mg/dl Direct Bilirubin 0.1 (0.0-0.2) mg/dL 09/16/20 Range/Units 08:16 WBC (5.0-10.0) 10^3/uL RBC (4.6-6.2) 10^6/uL Hgb (14.0-18.0) g/dL Hct (40.0-54.0) % MCV (80-100) fL MCH (27.0-34.0) pg MCHC (33.0-35.0) g/dL Plt Count (150-450) 10^3/uL Neut % (Auto) (42.2-75.2) % Lymph % (Auto) (20.5-50.1) % [place] % (Auto) (2-8) % Eos % (Auto) (1.0-3.0) % Baso % (Auto) (0.0-1.0) % Add Manual Diff D-Dimer, Quantitative (0-400) ng/mL POC Glucose 225 H (70-105) mg/dl Direct Bilirubin (0.0-0.2) mg/dL Result Diagrams: 09/16/20 06:08 09/15/20 06:25 Yao Results Last 24 hrs: Microbiology 09/12/20 09:13 Aerobic Blood Culture - Preliminary Blood - Venous - Iv Start NO GROWTH AFTER 4 DAYS Anaerobic Blood Culture - Preliminary NO GROWTH AFTER 4 DAYS Sepsis Event Note - Evaluation Sepsis Screening Result: No Definite Risk - Focused Exam Vital Signs: Vital Signs Temp Pulse Resp BP Pulse Ox 09/16/20 04:58 97.1 F 69 20 105/51 L 92 L 09/16/20 04:50 88 L 09/16/20 00:11 98.1 F 65 20 107/53 L 92 L - Problem List Review Problem List Initiated/Reviewed/Updated: Yes - My Orders Last 24 Hours: My Active Orders 09/16/20 06:08 PROCALCITONIN [REF] DAILY 09/17/20 05:00 CBC WITH AUTO DIFF [HEME] DAILY D-DIMER QUANTITATIVE [COAG] DAILY PROCALCITONIN [REF] DAILY 09/18/20 05:00 CBC WITH AUTO DIFF [HEME] DAILY D-DIMER QUANTITATIVE [COAG] DAILY PROCALCITONIN [REF] DAILY 09/19/20 05:00 CBC WITH AUTO DIFF [HEME] DAILY D-DIMER QUANTITATIVE [COAG] DAILY PROCALCITONIN [REF] DAILY 09/20/20 05:00 CBC WITH AUTO DIFF [HEME] DAILY D-DIMER QUANTITATIVE [COAG] DAILY PROCALCITONIN [REF] DAILY 09/21/20 05:00 CBC WITH AUTO DIFF [HEME] DAILY D-DIMER QUANTITATIVE [COAG] DAILY PROCALCITONIN [REF] DAILY 09/22/20 05:00 CBC WITH AUTO DIFF [HEME] DAILY D-DIMER QUANTITATIVE [COAG] DAILY PROCALCITONIN [REF] DAILY - Plan Plan:: Pt sent from [facility] with c/o dyspnea and found in clinic to be with oxygen saturation of 77% on RA with labored breathing. Patient states he became ill on 09/03/20, came to the ER on 09/05/20 and was COVID positive. He reports generalized body aches, loss of appetite, nausea, dry cough, and shortness of breath. Denies Hx of DM, asthma, or any other chronic diseases. Pt was admitted for Pneumonia due to COVID-19 virus, Acute respiratory failure due to COVID-19, Hyperglycemia High flow O2: O2 much improved Convalescent COVID-19 [place]: ( September 12) Remdesivir: ( stared September 12) Risks and benefits discussed. Pt would like to proceed. Methylpred ( stared September 12) Vit D and VIt C Enoxaparin: decreased to 40 mg daily instruction for proning portioning inflammatory markers: getting better Vanoc : DC since neg MRSA screen Continu Ceftriaxone : Procal gradualy improved. DC Zithromax. DM : increase Lantus Insulin sliding scale Dietitian
[2020-09-16] MEDS ORDERED: 50% Dextrose in Water 50 ML Syringe IV PRN (11:11)
[2020-09-16] MEDS: cefTRIAXone 1 GM in Sodium Chloride 0.9% 50 ML IV SCH (17:31)
[2020-09-17] MEDS: Ascorbic Acid 500 MG Tab PO SCH (08:15)
[2020-09-17] MEDS: Cholecalciferol (Vitamin D3) 25 MCG Tab PO SCH (08:15)
[2020-09-17] MEDS: Enoxaparin 40 MG/0.4 ML Syringe SUBCUT SCH (08:16)
[2020-09-17] MEDS: Dexamethasone 4 MG/ML SDV IVPUSH SCH (08:24)
[2020-09-17] MEDS ORDERED: Insulin Glarg,Human.Rec.Analog 100 Unit/ML SUBCUT SCH (09:00)
[2020-09-17] MEDS: Insulin Lispro 100 Units/ML 3 ML Vial SUBCUT SCH ×3 (09:33→17:06)
[2020-09-17 12:38] VITALS: BP 124/81; PULSE 84
--- NOTE | 2020-09-17 13:05 | PCM.SN.2 ---
- Free Text/Narrative Note: START OF DOCTOR [facility]ARA PROGRESS NOTE Subjective: The patient endorses no complaint at this time. He indicates that his respiratory status remains unchanged compared with September 17, 2020 however he states that he is near his respiratory status baseline. He currently rates his respiratory status as an 8 out of 10 at times his baseline. He denies fever, rigors, nausea, vomiting, cough, wheeze, abdominal pain, chest pain. I explained to the patient his current medical condition and plan of care and I have answered all of his questions Objective: General: -Alert -No acute distress -No dyspnea -No tachypnea -Obese Heart: -Regular rate -Regular rhythm -No murmurs -No gallops -No rubs Lungs: -No wheeze -No rhonchi -Diffuse low-grade rales Abdomen: -Normal bowel sounds in all four quadrants -No rebound -No guarding -No tenderness Extremities: -2/4 pulse in all four extremities -No clubbing -No cyanosis -No edema -Healing old wounds of bilateral shins Additional Details / Additional Findings / Exceptions / Miscellaneous: Pertinent Laboratory Results / Pertinent Radiology Results / Pertinent Diagnostic Results / Pertinent Vital Signs: Patient saturating 90% on 4 L Assessment / Plan: COVID-19 pneumonia. Dexamethasone milligrams IV daily plus Proventil HFA: 90 mcg/spray: 2 puffs every 4 hours while awake plus Rocephin 1 g IV daily plus vitamin C 500 mg p.o. daily plus D1 1000 IU p.o. daily. We will attempt to wean supplemental oxygen Hypokalemia. Will monitor potassium levels intermittently and supplement as necessary Obesity. Patient will be counseled regarding lifestyle modification Hepatic steatosis Diabetes. Will check fasting glucose before every meal and at bedtime and provide insulin sign scale plus insulin glargine 35 units subcutaneously daily DVT prophylaxis. Lovenox 40 mg subcutaneously daily Disposition: Anticipate discharge within 24 hours if patient requires 5 L of supplemental oxygen or less for which he may require temporary home oxygen END OF DOCTOR SAMARA PROGRESS NOTE
[2020-09-17 13:29] LABS: ANION GAP 9.3 mEq/L (7-13); CHLORIDE,CL 105 mmol/L (98-107); SODIUM,NA 143 mmol/L (136-145)
[2020-09-17] MEDS: Albuterol 6.7 GM Inhaler INH SCH ×2 (14:42→17:06)
--- NOTE | 2020-09-17 15:44 | PCM.SN.2 ---
- Free Text/Narrative Note: START OF DOCTOR EMAMIS DISCHARGE SUMMARY Date of Admission: September 12, 2020 Date of Discharge: 3:43 PM on September 17, 2020 Primary Diagnosis: COVID-19 pneumonia Secondary Diagnosis: Hypokalemia Obesity Hepatic steatosis Diabetes Consultations: None Disposition: The patient will be advised to follow-up with his primary care physician or provider 3 to 5 days post discharge for posthospitalization evaluation. The patient is advised to keep a blood sugar log checking before each meal and at bedtime documenting both the blood sugar numbers and the time that was checked Discharge Medications: Vitamin C 500 mg p.o. daily Vitamin D 1000 IU p.o. daily Dexamethasone 6 mg p.o. daily. Quantity 4. 0 refills Insulin glargine 35 units subcutaneously daily Insulin lispro subcutaneously before every meal and at bedtime per sliding scale Proventil HFA: 90 mcg/spray: 2 puffs every 4 hours as needed shortness of breath/wheeze END OF DOCTOR EMAMIS DISCHARGE SUMMARY
[2020-09-17] MEDS: cefTRIAXone 1 GM in Sodium Chloride 0.9% 50 ML IV SCH (16:17)
--- NOTE | 2020-09-17 16:20 | PCM.SN.2 ---
- Free Text/Narrative Note: START OF DOCTOR EMAMIS DISCHARGE SUMMARY Date of Admission: September 12, 2020 Date of Discharge: 3:43 PM on September 17, 2020 Primary Diagnosis: COVID-19 pneumonia Secondary Diagnosis: Hypokalemia Obesity Hepatic steatosis Diabetes Consultations: None Disposition: The patient will be advised to follow-up with his primary care physician or provider 3 to 5 days post discharge for posthospitalization evaluation. The patient is advised to keep a blood sugar log checking before each meal and at bedtime documenting both the blood sugar numbers and the time that was checked Discharge Medications: Vitamin C 500 mg p.o. daily Vitamin D 1000 IU p.o. daily Dexamethasone 6 mg p.o. daily. Quantity 4. 0 refills Insulin glargine 35 units subcutaneously daily Insulin lispro subcutaneously before every meal and at bedtime per sliding scale Proventil HFA: 90 mcg/spray: 2 puffs every 4 hours as needed shortness of breath/wheeze The patient requires oxygen via nasal cannula at 2 L/min at rest and 4 L/min with activity. Length of need: 1 month. END OF DOCTOR EMAMIS DISCHARGE SUMMARY
[2020-09-17] MEDS ORDERED: Insulin Lispro 100 Units/ML 3 ML Vial SUBCUT SCH (18:00)
== END 2020-09-17 18:30 | disposition home or self-care (01) | DRG 177 ==
LOC: DL.ED 08:26 → DL.MS 09:57
PROVIDERS: ADMIT Internal Medicine; ATTEND Internal Medicine
PROC: XW033E5 Introduction of Remdesivir Anti-infective into Peripheral Vein, Percutaneous Approach, New Technology Group 5 (ICD-10-PCS; principal; 2020-09-12)
PROC: XW033F5 Introduction of Other New Technology Therapeutic Substance into Peripheral Vein, Percutaneous Approach, New Technology Group 5 (ICD-10-PCS; 2020-09-12)
PROC: 8E0ZXY6 Isolation (ICD-10-PCS; 2020-09-12)
DX: U07.1 COVID-19 (principal); J96.01 Acute respiratory failure with hypoxia; J12.82 Pneumonia due to coronavirus disease 2019; K21.9 Gastro-esophageal reflux disease without esophagitis; Z97.3 Presence of spectacles and contact lenses; E11.65 Type 2 diabetes mellitus with hyperglycemia; Z79.4 Long term (current) use of insulin; E87.6 Hypokalemia; E66.9 Obesity, unspecified; Z68.34 Body mass index [BMI] 34.0-34.9, adult; K76.0 Fatty (change of) liver, not elsewhere classified
CPT/HCPCS: 36415; 36600; 71045; 71250; 80048; 80053; 80202; 82248; 82550; 82728; 82803; 82962; 83036; 83605; 83615; 83880; 84145; 84484; 85025; 85379; 85610; 85730; 86140; 86900; 86901; 87040; 87070; 93005; 93010; 94010; 94760; 94762; 96365; 96375; 99223; 99231; 99232; 99238; 99284; 99285-25; A9270-GY; J0456; J0696; J1100; J1650; J1815-GY; J3370; J7040; J7050; J7620-GY